=== PATIENT | male | born 1975 | race Caucasian/White ===

== ENCOUNTER 2020-04-20 09:01 | Outpatient (REF) | payer OTHER, SELFPAY | END 2020-04-20 09:02 | disposition home or self-care (01) | LOC: HO.LAB 09:01 | PROVIDERS: Visit Provider Internal Medicine | DX: Z20.822 Contact with and (suspected) exposure to COVID-19 (principal) | CPT/HCPCS: 36415; C9803; U0003; U0005 ==

== ENCOUNTER → 2021-04-25 07:50 | Outpatient (BNVA) | payer SELFPAY | PROVIDERS: PCP Internal Medicine; Visit Provider Internal Medicine | DX: Z02.79 Encounter for issue of other medical certificate (principal) ==

== ENCOUNTER 2021-10-02 09:26 | Outpatient (REF) | payer OTHER, SELFPAY ==
[2021-10-02 10:22] LABS: MANUAL DIFF FLAG NO
[2021-10-02 10:31] LABS: Basophils Percent Auto 0.7 % (0-2); Eosinophils Absolute Auto 0.3 X10*3/uL (0.0-0.4); Eosinophils Percent Auto 6.9 % (0-4); Hematocrit 41.6 % (42.0-52.0); Imm Gran Abs Auto 0.02 X10*3/uL (0.00-0.03); Imm Gran Pct Auto 0.5 % (0.0-0.4); Lymphocytes Absolute Auto 1.2 X10*3/uL (1.2-4.9); Lymphocytes Percent Auto 30.1 % (20-40); Mean Corpuscular HGB Conc 33.7 g/dl (31.0-36.0); Mean Corpuscular Hemoglobin 27.1 pg (27.0-33.0); Mean Corpuscular Volume 80.6 fL (80.0-98.0); Mean Platelet Volume 10.1 fL (9.4-12.4); Monocytes Absolute Auto 0.4 X10*3/uL (0.1-1.2); Monocytes Percent Auto 10.8 % (2-11); Neutrophils Absolute Auto 2.1 x10*3/uL (2.0-8.3); Platelet Count 245 X10*3/uL (160-400); Red Blood Count 5.16 X10*6/uL (4.60-5.80); Red Cell Distribution Width 12.2 % (11.0-16.0); White Blood Count 4.1 X10*3/uL (4.8-10.8)
[2021-10-02 11:15] LABS: Alanine Aminotransferase 23 U/L (0-40); Albumin Level 4.2 g/dL (3.5-5.0); Alkaline Phosphatase 85 U/L (39-117); Anion Gap 10 (12-20); Aspartate Amino Transferase 16 U/L (5-37); Bilirubin Total 0.7 mg/dL (0.0-1.0); Blood Urea Nitrogen 13 mg/dL (9-16); Calcium 9.1 mg/dL (8.4-10.2); Carbon Dioxide 26 mmol/L (22-29); Chloride 106 mmol/L (96-108); Cholesterol 184 mg/dL; Estimated Glomerular Filt Rate > 60; Glucose Fasting 132 mg/dL (60-99); HDL Cholesterol 34 mg/dL; LDL Cholesterol Calculated 122 mg/dl; Potassium 4.2 mmol/L (3.3-5.1); Sodium 138 mmol/L (135-145); Triglycerides 142 mg/dL
== END 2021-10-02 09:27 | disposition home or self-care (01) ==
LOC: HO.10HDL 09:26
PROVIDERS: Visit Provider Internal Medicine
DX: Z13.0 Encounter for screening for diseases of the blood and blood-forming organs and certain disorders involving the immune mechanism (principal); I10 Essential (primary) hypertension; E78.5 Hyperlipidemia, unspecified
CPT/HCPCS: 36415; 80053; 80061; 85025

== ENCOUNTER 2022-12-08 13:37 | Outpatient (AMB) | payer OTHER, SELFPAY ==
[2022-12-08 13:37] VITALS: BP 112/82; PULSE 70; O2SAT 98; BMI 40.0
--- NOTE | 2022-12-08 13:37 | MHC.PC.OV ---
Vital Signs 12/08/22 13:37 Height 5 ft 8 in Weight 263 lb BMI 40.0 BP 112/82 Blood Pressure Location Lt brachial Position Sitting Pulse 70 Pulse Source Pulse Oximeter Pulse Oximetry (%) 98 Oxygen Delivery Method Room Air Intake Visit Reasons: Physical exam Kitchen Help Handyman Required: No Warehouse Order Filler: Not Required per policy Accompanied by: Self / Same As Patient Allergies latex [LATEX] Allergy (Intermediate, Verified 12/08/22 13:38) ITCHING/RASH Pets Allergy (Unknown, Uncoded 12/08/22 13:38) Unknown Medication List - Last Reconciled 12/08/22 by Ke Denson MD albuterol sulfate 90 mcg/actuation (ProAir HFA) 2 puffs PO Q4-6H PRN ibuprofen 800 mg PO Q8H Tobacco use date assessed: 12/08/22 Dental Screening Dental Screen Date: 12/08/22 Did you have a dental visit in the last 12 months?: Yes Did you have a dental problem in the last 6 months where you did not have access to dental care?: No Was dental information given to patient?: Patient has dentist HPI Physical exam HPI Details mild asthma PFSH Medical History Obesity (BMI 30-39.9) Asthma Surgical History History of lipoma Family History Mother No problems noted. Father No problems noted. Social History Housing: House Patient Tobacco Use Status: Former Tobacco user Tobacco use type: Cigar e-Cigarette/Vaping Use: Never Used Second Hand Smoke Exposure: Yes service: No Current occupational status: unemployed Cognitive needs: No Hearing needs: No Vision needs: No Questionnaire PHQ-9 Over the last 2 weeks, how often have you been bothered by any of the following problems? 1. Little interest or pleasure in doing things: not at all 2. Feeling down, depressed, or hopeless: not at all 3. Trouble falling or staying asleep, or sleeping too much: not at all 4. Feeling tired or having little energy: not at all 5. Poor appetite or overeating: not at all 6. Feeling bad about yourself - or that you are a failure or have let yourself or your family down: not at all 7. Trouble concentrating on things, such as reading the newspaper or watching television: not at all 8. Moving or speaking so slowly that other people could have noticed. Or the opposite - being so fidgety or restless that you have been moving around a lot more than usual: not at all 9. Thoughts that you would be better off or of hurting yourself in some way: not at all Total score: 0 Depression Screening Interpretation: Negative 11959 - PHQ-9 Billing: Yes Source: Developed by Drs. Raymond Keller, Anny Saleh, Reuben Milton and colleagues, with an educational kedar from [employer]. Thrive Questionnaire Date Thrive assessed: 12/08/22 I am a: Patient What is your living situation today?: I have a steady place to live Within the past 12 months, did the food you bought not last and you didn't have the money to get more?: Never true Within the past 12 months, did you worry whether your food would run out before you got money to buy more?: Never true Do you have trouble paying for medicines?: No Do you have trouble getting transportation to medical appointments?: No Do you have trouble paying your heating and electricity bill?: No Do you have trouble taking care of your child, family member or friend?: No Do you have trouble with day-to-day activities such as bathing, preparing meals, shopping, managing finances, etc.?: No Are you currently unemployed and looking for a job?: No Are you interested in more education?: No Please select the resources that you would like help with: None AUDIT C Alcohol Use Questionnaire (AUDIT-C) 1. How often do you have a drink containing alcohol?: 2-4 times a month 2. How many drinks containing alcohol do you have on a typical day when you are drinking?: 3 or 4 3. How often do you have six or more drinks on one occasion?: Never Total Score: 3 Score Reviewed/Action Taken: Yes DERRELL-7 AMB Questionnaire DERRELL-7 Date DERRELL - 7 assessed: 12/08/22 Feeling nervous, anxious, or on edge: 0 = Not at all Not being able to stop or control worryin = Not at all Worrying too much about different things: 0 = Not at all Trouble relaxin = Not at all Being so restless that it is hard to sit still: 0 = Not at all Becoming easily annoyed or irritable: 0 = Not at all Feeling afraid as if something awful might happen: 0 = Not at all Total DERRELL-7 score (0-4 normal; 5-9 mild; 10-14 moderate; 15-21 severe): 0 Source: Developed by Drs. Raymond Keller, Anny Saleh, Reuben Milton and colleagues, with an educational kedar from [employer]. DERRELL-7 Assessment Billing DERRELL-7 Assessment Tool: DERRELL-7 Assessment 90295 Review of Systems Const Denies chills, Denies fatigue, Denies headache(s) and Denies weight loss Eyes Denies change in vision, Denies diplopia and Denies eye pain ENT Denies vertigo, Denies dizziness, Denies headache(s) and Denies nasal discharge Card Denies chest pain, Denies rapid heart rate and Denies dyspnea on exertion Resp Denies chest congestion, Denies cough, Denies pain with cough and Denies dyspnea on exertion GI Denies abdominal pain, Denies hematochezia and Denies change in bowel habits Musc Denies myalgias, Denies arthralgias and Denies joint swelling Skin/Breast Denies lesions and Denies unusual bruising Neuro Denies vertigo, Denies dizziness, Denies headache(s) and Denies focal weakness Endo Denies fatigue Physical exam (Primary Care) Vital Signs: Last Vital Signs Pulse 70 12/08/22 13:37 BP 112/82 12/08/22 13:37 Pulse Ox 98 12/08/22 13:37 Oxygen Delivery Method Room Air 12/08/22 13:37 BMI result Body Mass Index 40.0 Tobacco/Smoking Status: Tobacco use Status Tobacco use date assessed 12/08/22 12/08/22 13:42 Patient Tobacco Use Status Former Tobacco user 12/08/22 13:42 Tobacco use type Cigar 12/08/22 13:42 e-Cigarette/Vaping Use Never Used 12/08/22 13:42 PHQ-9: PHQ-9 Score PHQ-9: Total score 0 12/08/22 13:42 Depression Screening Interpretation: Negative Thrive Assessment: Date of Thrive Assessment Date Thrive assessed 12/08/22 12/08/22 13:42 Const General: cooperative, healthy appearing and no acute distress Orientation/consciousness: oriented to person, oriented to place and oriented to time HENMT Head: Yes normal to inspection, Yes normocephalic and Yes atraumatic Mouth: Normal oral and palatal mucosa present and tongue normal Throat: Yes posterior oropharynx normal and Yes uvula midline Eyes General: appearance normal, both eyes and all related structures Neck Neck: Yes normal visual inspection, Yes full ROM and Yes no lymphadenopathy Thyroid: Thyroid normal Carotids: normal carotid upstroke Chest Chest palpation & inspection: normal inspection of the chest Resp Effort & Inspection: normal respiratory effort and able to speak in complete sentences Auscultation: clear to auscultation bilaterally Cardio Jugular venous distension: no JVD Palpation: normal PMI Rate: regular rate Rhythm: regular rhythm Heart sounds: S1 normal heart sound present and S2 normal heart sound present GI Inspection: Yes normal to inspection Palpation (GI): Soft to palpation and No hepatosplenomegaly present Auscultation: normal bowel sounds General: Yes no CVA tenderness Back/Spine/Pelvis Back: no CVA tenderness Skin General skin exam: no rashes or lesions noted Neuro General: oriented to person, oriented to place and oriented to time Extrem General: Yes normal to inspection and Yes full ROM Assessment and Plan Assessment & Plan (1) Physical exam: Code(s): Z00.00 - Encounter for general adult medical examination without abnormal findings Plan: stable (2) Asthma: Code(s): J45.909 - Unspecified asthma, uncomplicated Plan: do labs Orders: Orders Lipid Panel Today E78.5 - Hyperlipidemia, unspecified Comprehensive [place]. Panel Fast Today N28.9 - Disorder of kidney and ureter, unspecified Complete Blood Count Auto Diff Today D64.9 - Anemia, unspecified Thyroid Stimulating Hormone Today E03.9 - Hypothyroidism, unspecified Magnesium Today E83.42 - Hypomagnesemia Referrals Gastroenterology Referral Z12.11 - Encounter for screening for malignant neoplasm of colon Medications: Refilled albuterol sulfate 90 mcg/actuation (ProAir HFA) 2 puffs PO Q4-6H PRN 8.5 ea 9RF shortness of breath or wheezing Coding Level of Care Code Est Pt Prev Care 40-64y(29604) Diagnoses Physical exam Z00.00 Asthma J45.909 Additional Codes DERRELL-7 Assessment Billing - DERRELL-7 Assessment Tool: DERRELL-7 Assessment 37252 ([id number])
== END 2022-12-08 14:17 | disposition home or self-care (01) ==
PROVIDERS: PCP Internal Medicine; Visit Provider Internal Medicine
DX: Z00.00 Encounter for general adult medical examination without abnormal findings (principal); J45.909 Unspecified asthma, uncomplicated
CPT/HCPCS: 99396

== ENCOUNTER 2022-12-08 14:15 | Outpatient (REF) | payer OTHER, SELFPAY ==
[2022-12-08 14:42] LABS: MANUAL DIFF FLAG NO
[2022-12-08 15:38] LABS: Basophils Absolute Auto 0.1 X10*3/uL (0.0-0.2); Eosinophils Absolute Auto 0.3 X10*3/uL (0.0-0.4); Eosinophils Percent Auto 6.4 % (0-4); Hematocrit 42.8 % (42.0-52.0); Hemoglobin 14.1 g/dl (14.0-18.0); Imm Gran Abs Auto 0.03 X10*3/uL (0.00-0.03); Imm Gran Pct Auto 0.6 % (0.0-0.4); Lymphocytes Absolute Auto 1.8 X10*3/uL (1.2-4.9); Lymphocytes Percent Auto 36.2 % (20-40); Mean Corpuscular HGB Conc 32.9 g/dl (31.0-36.0); Mean Corpuscular Hemoglobin 27.6 pg (27.0-33.0); Mean Corpuscular Volume 83.9 fL (80.0-98.0); Mean Platelet Volume 10.4 fL (9.4-12.4); Monocytes Absolute Auto 0.6 X10*3/uL (0.1-1.2); Monocytes Percent Auto 12.2 % (2-11); Neutrophils Absolute Auto 2.2 x10*3/uL (2.0-8.3); Neutrophils Percent Auto 43.6 % (45-73); Platelet Count 234 X10*3/uL (160-400); Red Cell Distribution Width 12.4 % (11.0-16.0)
[2022-12-08 16:11] LABS: Alanine Aminotransferase 21 U/L (0-40); Albumin Level 4.3 g/dL (3.5-5.0); Alkaline Phosphatase 74 U/L (39-117); Anion Gap 12 (12-20); Aspartate Amino Transferase 17 U/L (5-37); Bilirubin Total 1.5 mg/dL (0.0-1.0); Blood Urea Nitrogen 13 mg/dL (9-16); Calcium 9.4 mg/dL (8.4-10.2); Carbon Dioxide 26 mmol/L (22-29); Chloride 106 mmol/L (96-108); Cholesterol 208 mg/dL (<200); Estimated Glomerular Filt Rate > 60; Glucose Fasting 105 mg/dL (60-99); HDL Cholesterol 45 mg/dL (>40); LDL Cholesterol Calculated 138 mg/dL (<100); Magnesium 1.9 mg/dL (1.6-2.6); Sodium 140 mmol/L (135-145); Total Protein 7.2 g/dL (6.5-8.0); Triglycerides 127 mg/dL (<150)
[2022-12-08 16:26] LABS: Thyroid Stimulating Hormone 0.89 uIU/mL (0.32-4.0)
== END 2022-12-08 14:16 | disposition home or self-care (01) ==
LOC: HO.LAB 14:15
PROVIDERS: PCP Internal Medicine; Visit Provider Internal Medicine
DX: N28.9 Disorder of kidney and ureter, unspecified (principal); E03.9 Hypothyroidism, unspecified; E83.42 Hypomagnesemia; E78.5 Hyperlipidemia, unspecified; D64.9 Anemia, unspecified
CPT/HCPCS: 36415; 80053; 80061; 83735; 84443; 85025

== ENCOUNTER → 2023-04-08 08:55 | Outpatient (BNVA) | payer SELFPAY | PROVIDERS: PCP Internal Medicine; Visit Provider Physician Assistant Medical | DX: Z02.79 Encounter for issue of other medical certificate (principal) ==

== ENCOUNTER 2023-10-02 10:27 | Day surgery (SDC) | payer OTHER, SELFPAY ==
[2023-09-30 14:46] VITALS: BMI 41.0
[2023-09-30 14:55] VITALS: BMI 41.0
--- NOTE | 2023-10-01 09:25 | HO.ANESPROP2 ---
Documented by User: Fawn Beyer NP 10/01/23 09:25 HPI - Anesthesia Eval Consult details Narrative: 48yo M for Colonoscopy Per GI H&P, hx PAF 2002 resolved, No OAC PMFSH Active Problems Active Problems: All Active Problems Physical exam (Acute) Obesity (BMI 30-39.9) (Acute) Asthma (Acute) Past Medical History Medical History PAF (paroxysmal atrial fibrillation) Obesity (BMI 30-39.9) Asthma Family History Family History Mother No problems noted. Father No problems noted. Surgical History Surgical History History of lipoma Social History Social History Housing: House Patient Tobacco Use Status: Former Tobacco user Tobacco use type: Cigar e-Cigarette/Vaping Use: Never Used Second Hand Smoke Exposure: Yes Use of substances other than those prescribed or required for medical reasons: No Have you been hit, kicked, punched, or otherwise hurt by someone within the past year? If so, by whom?: No Are you DNR?: No Advance Directives: No Advance Directives Information Provided: No Advance Directives on File: No Recently lost weight without trying: No Eating poorly because of decreased appetite: No Nutrition Risks: No Nutritional Risk service: No Current occupational status: unemployed Cognitive needs: No Hearing needs: No Vision needs: No Meds Allergies Allergy/AdvReac Type Severity Reaction Status Date / Time animal dander Allergy Intermediate Itchy Eyes Verified 10/02/23 06:31 latex [LATEX] Allergy Intermediate ITCHING/RASH-from Verified 10/02/23 06:31 powder in latex gloves Home Medications ?Medication ?Instructions ?Recorded ?Confirmed ?Last Taken ?Type albuterol sulfate 90 mcg/actuation 2 puff inhalation Q4-6H PRN 09/30/23 09/30/23 Unknown History aerosol inhaler (Ventolin HFA) wheezing Exam Height,Weight and Vital Signs: Height 5 ft 8 in Weight 122.47 kg Assessment and Plan Assessment Anesthesia Assessment: Chart Reviewed Documented by User: Agatha Johnson MD 10/02/23 08:13 PMFSH Past Medical History Medical History PAF (paroxysmal atrial fibrillation) Obesity (BMI 30-39.9) Asthma Family History Family History Mother No problems noted. Father No problems noted. Family history of problems with anesthesia: No Surgical History Surgical History History of lipoma History of Problems with Anesthesia: No Social History Social History Housing: House Patient Tobacco Use Status: Former Tobacco user Tobacco use type: Cigar e-Cigarette/Vaping Use: Never Used Second Hand Smoke Exposure: Yes Use of substances other than those prescribed or required for medical reasons: No Have you been hit, kicked, punched, or otherwise hurt by someone within the past year? If so, by whom?: No Are you DNR?: No Advance Directives: No Advance Directives Information Provided: No Advance Directives on File: No Recently lost weight without trying: No Eating poorly because of decreased appetite: No Nutrition Risks: No Nutritional Risk service: No Current occupational status: unemployed Cognitive needs: No Hearing needs: No Vision needs: No Meds Allergies Allergy/AdvReac Type Severity Reaction Status Date / Time animal dander Allergy Intermediate Itchy Eyes Verified 10/02/23 06:31 latex [LATEX] Allergy Intermediate ITCHING/RASH-from Verified 10/02/23 06:31 powder in latex gloves Home Medications ?Medication ?Instructions ?Recorded ?Confirmed ?Last Taken ?Type albuterol sulfate 90 mcg/actuation 2 puff inhalation Q4-6H PRN 09/30/23 09/30/23 Unknown History aerosol inhaler (Ventolin HFA) wheezing Exam Airway Mallampati Class: II TM Dist: >3cm Neck ROM: Full Heart: rrr Lungs: cta Assessment and Plan Assessment Anesthesia Assessment: Anesthesia Plan Discussed Final Anesthetic Review Family History of Problems with Anesthesia: No History of Problems with Anesthesia: No NPO: Yes ASA Class: II Final Preanesthetic Review: No Changes in Pt Med Stat, Meds/Allgs Chart Reviewed, Consent Obtained/Reviewed and Anes Risks/Benef Reviewed Patient Risk: Low Procedure Risk: Low Anesthetic Plan Anesthetic Plan: MAC: Disposition: Standard PACU
[2023-10-02] MEDS: Lactated Ringers 1,000 ML 100 ML IVCONT (11:01)
[2023-10-02 11:09] VITALS: BP 132/85; PULSE 74; RESP 18; TEMP 36.8; O2SAT 96
--- NOTE | 2023-10-02 13:03 | PM.OP ---
Brief Operative Note Date of Service: 10/02/23 Pre-op diagnosis: Screening Post-op diagnosis: other (Diverticulosis) Procedure: Colonoscopy to the cecum Surgeon: Raymond Mrianda MD Anesthesia: MAC Was an Whipped Topping Supervisor used for this Procedure?: No Estimated blood loss (mL): 0 Pathology: none sent Condition: stable Disposition: PACU
[2023-10-02 13:04] VITALS: BP 105/65; PULSE 78; RESP 16; TEMP 36.2; O2SAT 94
[2023-10-02 13:19] VITALS: BP 110/75; PULSE 65; RESP 16; TEMP 36.2; O2SAT 95
--- NOTE | 2023-10-02 13:34 | OP_ITS ---
DATE OF SERVICE: 10/02/2023 SURGEON: Raymond Miranda MD INDICATIONS: The patient presents for evaluation of colorectal cancer screening. Full consent has been obtained from him for this, including risks of bleeding and perforation. PREOPERATIVE DIAGNOSIS: Colorectal cancer screening. POSTOPERATIVE DIAGNOSIS: PROCEDURE PERFORMED: Colonoscopy to cecum. ESTIMATED BLOOD LOSS: COMPLICATIONS: ANESTHESIA: Monitored anesthesia care. ASSISTANTS: SPECIMENS: POSTOPERATIVE DIAGNOSES: Colorectal cancer screening, sigmoid diverticulosis, and internal hemorrhoids. DESCRIPTION OF PROCEDURE: The patient was placed in the left lateral decubitus position. The digital rectal exam revealed no abnormalities. The Olympus video pediatric colonoscope was entered into the rectum and advanced easily to the cecum. Once in the cecum, I did identify normal-appearing cecal pouch with appendiceal orifice and a normal-appearing ileocecal valve. The entire cecum appeared normal without mass or ulceration. The ileocecal valve appeared normal. The scope was slowly withdrawn assessing all mucosal surfaces carefully. Preparation was excellent. I did not visualize any sign of polyps, colitis, nor angiodysplasia. There was a mild amount of sigmoid diverticulosis. In the rectum, scope was retroflexed visualizing small internal hemorrhoids, but no other pathology. The rectal mucosa appeared normal. The scope was straightened and withdrawn from the patient. He tolerated the procedure well and was returned to the recovery area in stable condition. IMPRESSION: 1. Mild sigmoid diverticulosis. 2. Small internal hemorrhoids. PLAN: Given today's negative colonoscopy and negative family history of colon cancer, I would recommend a repeat colonoscopy in 10 years for further screening. He will otherwise see me on a p.r.n. basis. Raymond Miranda MD RMYandy/FUENTES / [phone]
--- NOTE | 2023-10-02 13:52 | PC.NURSE ---
24hr update documented on paper
== END 2023-10-02 13:40 | disposition home or self-care (01) ==
PROVIDERS: PCP Internal Medicine; Visit Provider Internal Medicine
PROC: 0DJD8ZZ Inspection of Lower Intestinal Tract, Via Natural or Artificial Opening Endoscopic (ICD-10-PCS; CPT 45378; principal; 2023-10-02 07:30)
DX: Z12.11 Encounter for screening for malignant neoplasm of colon (principal); K57.30 Diverticulosis of large intestine without perforation or abscess without bleeding; K64.8 Other hemorrhoids; Z79.1 Long term (current) use of non-steroidal anti-inflammatories (NSAID)
CPT/HCPCS: 45378; J2704

== ENCOUNTER 2024-08-25 08:35 | Outpatient (AMB) | payer OTHER, SELFPAY ==
[2024-08-25 08:37] VITALS: BP 116/82; PULSE 74; RESP 16; TEMP 37.3; O2SAT 98; BMI 39.8
--- NOTE | 2024-08-25 08:37 | A.OFFPC_ITS ---
Vital Signs 08/25/24 08:37 Height 5 ft 8 in Weight 261 lb 12.8 oz BMI 39.8 BP 116/82 Blood Pressure Location Lt brachial Position Sitting Respiration 16 Pulse 74 Pulse Source Pulse Oximeter Temp 99.1 F Temp Source Oral Pulse Oximetry (%) 98 Oxygen Delivery Method Room Air Intake Visit Reasons: DONG DR Denson Editor Index Required: No Accompanied by: Self / Same As Patient Allergies animal dander Allergy (Intermediate, Verified 08/25/24 08:49) Itchy Eyes latex (LATEX) Allergy (Intermediate, Verified 08/25/24 08:49) ITCHING/RASH-from powder in latex gloves Medication List - Last Reconciled 08/25/24 by MARCELLE Pressley albuterol sulfate 90 mcg/actuation (Ventolin HFA) 2 puffs inhalation Q4-6H PRN ibuprofen 800 mg PO Q8H Tobacco use date assessed: 08/25/24 Dental Screening Dental Screen Date: 08/25/24 Did you have a dental visit in the last 12 months?: Yes Did you have a dental problem in the last 6 months where you did not have access to dental care?: No Was dental information given to patient?: Patient has dentist HPI DONG DR Denson HPI Details The patient is a 49-year-old male presenting for transition of care from Dr. Denson and for a routine check-up and management of chronic conditions. The patient has a history of hyperlipidemia (LDL) with previous cholesterol levels fluctuating between 122 and 165 mg/dL, currently at 138 mg/dL. He has modified his diet by increasing vegetable intake and reducing alcohol consumption. The patient reports asthma exacerbations primarily during pollen season, requiring the use of Ventolin and ProAir inhalers up to 3-4 times daily during July. He avoids using a nebulizer due to a history of atrial fibrillation, which was last symptomatic approximately 20 years ago. 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 He has not had an x-ray of the shoulder previously. The patient also reports osteoarthritis in both knees, with intermittent swelling and pain managed with ibuprofen. He engages in long walks to alleviate symptoms, although advised against it. The patient underwent surgery for a lipoma, which no longer causes pain. His lower back has wearing tear pain that hurts once in a while. The pain is mild in nature does not require medication at this time. Reports having AFIB in his 20s and was placed on medication but he cannot remember the name. He stopped the medication and has not follow up with cardiology in years. States that he changed his diet and stop drinking alcohol, and he has not had an episode since. Patient stated that he is not getting any younger and thinks that he should follow up with cardiology to make sure his heart is fine. [facility] Medical History (Updated 08/25/24 @ 21:31 by MARCELLE Pressley) Bilateral knee pain PAF (paroxysmal atrial fibrillation) Obesity (BMI 30-39.9) Asthma Surgical History History of lipoma Family History Mother No problems noted. Father No problems noted. Social History Housing: House Patient Tobacco Use Status: Former Tobacco user Tobacco use type: Cigar e-Cigarette/Vaping Use: Never Used Second Hand Smoke Exposure: No service: No Current occupational status: unemployed Cognitive needs: No Hearing needs: No Vision needs: No Questionnaire PHQ-9 Over the last 2 weeks, how often have you been bothered by any of the following problems? 1. Little interest or pleasure in doing things: several days 2. Feeling down, depressed, or hopeless: not at all 3. Trouble falling or staying asleep, or sleeping too much: not at all 4. Feeling tired or having little energy: several days 5. Poor appetite or overeating: not at all 6. Feeling bad about yourself - or that you are a failure or have let yourself or your family down: not at all 7. Trouble concentrating on things, such as reading the newspaper or watching television: not at all 8. Moving or speaking so slowly that other people could have noticed. Or the opposite - being so fidgety or restless that you have been moving around a lot more than usual: not at all 9. Thoughts that you would be better off or of hurting yourself in some way: not at all Total score: 2 Depression Screening Interpretation: Negative Depression Screening Done: Yes 55826 - PHQ-9 Billing: Yes Source: Developed by Drs. Raymond Keller, Anny Saleh, Reuben Milton and colleagues, with an educational kedar from [employer]. Thrive Questionnaire Date Thrive assessed: 08/25/24 I am a: Patient What is your living situation today?: I have a steady place to live Within the past 12 months, did the food you bought not last and you didn't have the money to get more?: Never true Within the past 12 months, did you worry whether your food would run out before you got money to buy more?: Never true Do you have trouble paying for medicines?: No Do you have trouble getting transportation to medical appointments?: No Do you have trouble paying your heating and electricity bill?: No Do you have trouble taking care of your child, family member or friend?: No Do you have trouble with day-to-day activities such as bathing, preparing meals, shopping, managing finances, etc.?: No Are you currently unemployed and looking for a job?: No Are you interested in more education?: No Please select the resources that you would like help with: None Currently or been in a relationship where the following occur: No concerns reported THRIVE Score: 0 AUDIT C Alcohol Use Questionnaire (AUDIT-C) 1. How often do you have a drink containing alcohol?: Never Total Score: 0 Score Reviewed/Action Taken: No DERRELL-7 AMB Questionnaire DERRELL-7 Date DERRELL - 7 assessed: 08/25/24 Feeling nervous, anxious, or on edge: 0 = Not at all Not being able to stop or control worryin = Not at all Worrying too much about different things: 0 = Not at all Trouble relaxin = Not at all Being so restless that it is hard to sit still: 3 = Nearly every day Becoming easily annoyed or irritable: 0 = Not at all Feeling afraid as if something awful might happen: 0 = Not at all Total DERRELL-7 score (0-4 normal; 5-9 mild; 10-14 moderate; 15-21 severe): 3 Source: Developed by Drs. Raymond Keller, Reuben Salcido and colleagues, with an educational kedar from [employer]. DERRELL-7 Assessment Billing DERRELL-7 Assessment Tool: DERRELL-7 Assessment 69469 Review of Systems Const Denies headache(s) Eyes Denies loss of vision ENT Denies vertigo, Denies dizziness, Denies headache(s) and Denies sore throat Card Denies chest pain, Denies leg edema and Denies lightheadedness Resp Denies cough, Denies hemoptysis and Reports wheezing (on and off-more frequent due the seasonal changes) GI Denies abdominal pain, Denies melena, Denies constipation, Denies diarrhea and Denies vomiting Denies dysuria, Denies urinary frequency and Denies urinary urgency Musc Reports back pain (on and off mild ), Reports arthralgias (left shoulder, bilateral knee), Reports joint swelling (hx of asim knee swelling on and off-has not happen in a long time), Denies numbness and Denies tingling Neuro Denies Abnormal speech present, Denies behavioral changes, Denies vertigo, Denies dizziness, Denies headache(s), Denies loss of vision, Denies memory loss, Denies numbness and Denies tingling Psych Denies anxiety, Denies behavioral changes, Denies depression, Denies memory loss and Denies panic attacks Emmanuel/Lymph Denies easy bleeding and Denies easy bruising Aller/Immun Reports wheezing (on and off-more frequent due the seasonal changes) Physical exam (Primary Care) Vital Signs: Last Vital Signs Temp 99.1 F 08/25/24 08:37 Pulse 74 08/25/24 08:37 Resp 16 08/25/24 08:37 BP 116/82 08/25/24 08:37 Pulse Ox 98 08/25/24 08:37 Oxygen Delivery Method Room Air 08/25/24 08:37 BMI result Body Mass Index 39.8 Tobacco/Smoking Status: Tobacco use Status Tobacco use date assessed 08/25/24 08/25/24 08:47 Patient Tobacco Use Status Former Tobacco user 08/25/24 08:47 Tobacco use type Cigar 08/25/24 08:47 e-Cigarette/Vaping Use Never Used 08/25/24 08:47 PHQ-9: PHQ-9 Score PHQ-9: Total score 2 08/25/24 09:12 Depression Screening Interpretation: Negative Thrive Assessment: Date of Thrive Assessment Date Thrive assessed 08/25/24 08/25/24 08:47 Currently or been in a relationship where the following occur: No concerns reported Const General: healthy appearing, no acute distress, alert and awake Nutritional Appearance: well nourished Orientation/consciousness: oriented to person, oriented to place and oriented to time HENMT Ears: TM's normal bilaterally General nose exam: Normal nasal mucous membranes and turbinates present Eyes Conjunctivae: conjunctivae normal Sclerae: sclerae normal Pupils: Equal, round and reactive pupils present Neck Neck: Yes no lymphadenopathy and Yes no JVD Thyroid: Thyroid normal Carotids: no bruits Resp Effort & Inspection: normal respiratory effort and not tachypneic Auscultation: no crackles, no rales, no rhonchi and no wheezes Cardio Rate: regular rate Rhythm: regular rhythm Heart sounds: no murmurs and normal S1 and S2 GI Palpation (GI): Soft to palpation, nontender, no hepatomegaly and no splenomegaly Auscultation: normal bowel sounds General: Yes no CVA tenderness Back/Spine/Pelvis Back: no CVA tenderness Thoracic/Lumbar Spine: No thoracic spinal tenderness and No lumbar spinal tenderness Skin General skin exam: no rashes or lesions noted and dry skin Neuro General: oriented to person, oriented to place and oriented to time Cranial nerves: Yes Equal, round and reactive pupils present Speech: No Abnormal speech present Gait exam (Neuro): Normal gait present Motor exam (neuro): no tremor noted Extrem Right upper extremity: full ROM Left upper extremity: full ROM and shoulder/upper arm Details: tenderness and other (cracking sounds with movements) Right lower extremity: full ROM and knee Details: no tenderness and no swelling; no edema Left lower extremity: full ROM and knee Details: no tenderness and no swelling; no edema Psych Mental Status: mental status grossly normal Speech and movement: Normal speech and movement present Affect: normal affect Attitude: cooperative Thought process: Normal thought process present Coding Level of Care Code Est Pt Level 4 (71160) Diagnoses PAF (paroxysmal atrial fibrillation) I48.0 Hyperlipidemia, unspecified hyperlipidemia type E78.5 Hyperlipidemia type: unspecified Obesity (BMI 30-39.9) E66.9 Chronic left shoulder pain M25.512; G89.29 Chronicity: chronic Mild intermittent asthma with status asthmaticus J45.22 Asthma severity: mild Asthma persistence: intermittent Asthma complication type: with status asthmaticus Chronic pain of both knees M25.561; M25.562; G89.29 Chronicity: chronic Additional Codes DERRELL-7 Assessment Billing - DERRELL-7 Assessment Tool: DERRELL-7 Assessment 33709 ([id number]) PHQ-9 - 84525 - PHQ-9 Billing: Yes ([id number]) Time Spent (min) 38 Assessment & Plan Assessment & Plan (1) PAF (paroxysmal atrial fibrillation): Comment: 2001-never took [id number] recurred-? alcohol induced-no longer using alcohol-sees PCP regularly-is active Code(s): I48.0 - Paroxysmal atrial fibrillation Category: Medical Plan: Afib in his 20s was placed on medication by cardiology but stopped the medication shortly after has not followed up with cardiology in about 20 years denies any episodes since-attributed to changing diet and stop drinking alcohol would like to follow up with cardiology to make sure his heart is fine because I am not getting any younger will send pt for EKG and blood work cardiology referral placed (2) HLD (hyperlipidemia): Code(s): E78.5 - Hyperlipidemia, unspecified Category: Medical Qualifiers: Hyperlipidemia type: unspecified Qualified Code(s): E78.5 - Hyperlipidemia, unspecified Plan: t-chol 208, ldl 138, hdl 45 12/2022 Discussed lifestyle modifications including dietary changes and physical activity will order lipid and advise (3) Obesity (BMI 30-39.9): Code(s): E66.9 - Obesity, unspecified Category: Medical Plan: Discussed lifestyle modifications including dietary changes and physical activity (4) Left shoulder pain: Code(s): M25.512 - Pain in left shoulder Category: Medical Qualifiers: Chronicity: chronic Qualified Code(s): M25.512 - Pain in left shoulder; G89.29 - Other chronic pain Plan: ongoing pain, limited ROM and reported cracking sounds with movements left shoulder x-ray ordered to further evaluate (5) Asthma: Code(s): J45.909 - Unspecified asthma, uncomplicated Category: Medical Qualifiers: Asthma severity: mild Asthma persistence: intermittent Asthma complication type: with status asthmaticus Qualified Code(s): J45.22 - Mild intermittent asthma with status asthmaticus Plan: only seasonal, but appears to be more than mild during the flare ups offered mild corticosteriod inhaler, but he declined will continue to monitor (6) Bilateral knee pain: Code(s): M25.561 - Pain in right knee; M25.562 - Pain in left knee Category: Medical Qualifiers: Chronicity: chronic Qualified Code(s): M25.561 - Pain in right knee; M25.562 - Pain in left knee; G89.29 - Other chronic pain Plan: Reports ongoing on and off bilateral knee swelling/pain No edema or tenderness to palpation +ROM, normal appearing knees continue conservative treatments with NSAIDS Orders: Orders Comprehensive [place]. Panel Fast Today E66.9 - Obesity, unspecified, E78.5 - Hyperlipidemia, unspecified, J45.909 - Unspecified asthma, uncomplicated, Z00.00 - Encounter for general adult medical examination without abnormal findings Vitamin D 25-OH Total Today E66.9 - Obesity, unspecified, E78.5 - Hy perlipidemia, unspecified, J45.909 - Unspecified asthma, uncomplicated, Z00.00 - Encounter for general adult medical examination without abnormal findings Lipid Panel Today E66.9 - Obesity, unspecified, E78.5 - Hyperlipidemia, unspecified, J45.909 - Unspecified asthma, uncomplicated, Z00.00 - Encounter for general adult medical examination without abnormal findings Complete Blood Count Auto Diff Today E66.9 - Obesity, unspecified, E78.5 - Hyperlipidemia, unspecified, J45.909 - Unspecified asthma, uncomplicated, Z00.00 - Encounter for general adult medical examination without abnormal findings TSH reflex Free T4 Today E66.9 - Obesity, unspecified, E78.5 - Hyperlipidemia, unspecified, J45.909 - Unspecified asthma, uncomplicated, Z00.00 - Encounter for general adult medical examination without abnormal findings UA CC w/rflx Micro + Cult Today E66.9 - Obesity, unspecified, E78.5 - Hy perlipidemia, unspecified, J45.909 - Unspecified asthma, uncomplicated, Z00.00 - Encounter for general adult medical examination without abnormal findings ECG 12 lead EKG Today I48.0 - Paroxysmal atrial fibrillation Referrals Cardiology Referral I48.0 - Paroxysmal atrial fibrillation
--- OUTSIDE RECORDS SUMMARY | 2024-08-25 08:56 | XMS_ITS | Clinical Summary ---
Author Organization [employer] Address [address] [place] [address] [address] [place] [address] Care Team Providers [employer] Name Role Phone Unavailable Primary Care Provider Unavailabl e Allergies Active Allergy Reactions Criticality Noted Date Comments Latex Itching 01/26/2017 Pt claims he is allergic to the powder inside the latex gloves and not the actual latex itself Octacosanol 07/29/2023 Medications ibuprofen 800 MG tablet Take 800 mg by mouth every 8 (eight) hours. 3 Active Ventolin HFA 108 (90 Base) MCG/ACT inhaler TAKE 2 PUFFS BY MOUTH EVERY 4 TO 6 HOURS NEEDED FOR WHEEZE FOR SHORTNESS OF BREATH 3 Active Active Problems No known active problems Social History Tobacco Use Types Packs/Day Years Used Date Smoking Tobacco: Never Passive Smoke Exposure: Never Smokeless Tobacco: Never Tobacco Cessation:Counseling Given: Not Answered Alcohol Use Standard Drinks/Week Comments Defer 0 (1 standard drink = 0.6 oz pur e alcohol) Comments Unknown Sex and Gender Information Value Date Recorded Sex Assigned at Male 01/06/2022 10:16 AM EDT Legal Sex Male 10:16 AM EDT Gender Identity Male 01/06/2022 10:16 AM EDT Sexual Orientation Straight 01/06/2022 10 :16 AM EDT Last Filed Vital Signs Vital Sign Reading Time Taken Comments Blood Pressure 128/82 05/12/2024 8:06 AM EST Pulse 65 09/14/2023 8:52 AM EDT Temperature - - Respiratory Rate - - Oxygen Saturation - - Inhaled Oxygen Concentration - - Weight - - Height - - Body Mass Index - - Plan of Treatment Upcoming Encounters Date Type Department Care Team ([facility] st Contact Info) Description 11/14/2024 8:00 AM EDT Office Visit [facility] [address] [place] [address] Celine Bernard Health Maintenance Due Date Last Done Comments CT Colonography 1973 Colonoscopy 1973 Colorectal Cancer Screening 1973 Depression Screening 1973 FIT DNA/Cologuard 1973 FIT 1973 FOBT 1973 HIV Screening 1973 Lipid Panel 1973 SDOH Screening 1973 Sigmoidoscopy 1973 Disability Screening 1973 Alcohol/Substance Use Screening 1985 Family Planning (PISQ) 02/23/1988 Hepatitis C Screening 1991 DTaP/Tdap/Td Vaccines (1 - Tdap) 02/23/1992 Hepatitis B Vaccines (1 of 3 - 19+ 3-dose series) 02/23/1992 Pap Smear 1994 Cervical Cancer Screening 2003 HPV/Cotest 2003 Mammogram 2013 Pneumococcal Vaccine: 50+ Years (1 of 1 - PCV) 2023 Zoster Vaccines (1 of 2) 2023 COVID-19 Vaccine (1 - season) 2023 Influenza Vaccine (Season Ended) 2024 Dental Oral Exam 11/13/2024 05/12/2024, , 12/22/2022, Additional history exists Dental Prophylaxis 11/13/2024 05/12/2024, 0 07/29/2023, 12/22/2022, Additional history exists Tobacco Screening 05/12/2025 05/12/2024 Dental X-Ray: Bitewings 05/13/2025 05/13/19 25, 07/29/2023, 12/22/2022, Additional history exists Dental X-Ray: Full Mouth 09/22/2026 09/22/2023, 11/0 06/2020 RSV Patients and Patients Aged 60 years or older (1 - 1-dose 75+ series) 02/23/2048 HIB Vaccines Aged Out No longer eligi ble based on patient's age to complete this topic HPV Vaccines Aged Out No longer eligi ble based on patient's age to complete this topic Hepatitis A Vaccines Aged Out No long er eligible based on patient's age to complete this topic IPV Vaccines Aged Out No longer eligi ble based on patient's age to complete this topic Meningococcal B Vaccine Aged Out No l onger eligible based on patient's age to complete this topic Meningococcal Vaccine Aged Out No jonah julio eligible based on patient's age to complete this topic RSV under 20 months Aged Out No longe r eligible based on patient's age to complete this topic Rotavirus Vaccines Aged Out No longer eligible based on patient's age to complete this topic Procedures Procedure Name Priority Date/Time Associated Diagnosis Comments PROPHYLAXIS - ADULT Routine 05/12/2024 8 :00 AM EST BITEWINGS - 4 RADIOGRAPHIC IMAGES Routine 05/12/2024 8:00 AM EST PERIODIC ORAL EVALUATION - ESTABLISHED PATIENT Routine 05/12/2024 8:00 AM EST PANORAMIC RADIOGRAPHIC IMAGE Routine 09/22/2023 10:00 AM EDT from Last 3 Months or Most Recently Relevant to Health Maintenance Insurance [facility] MEDICAID STAND ADULT
== END 2024-08-25 09:19 | disposition home or self-care (01) ==
DX: I48.0 Paroxysmal atrial fibrillation (principal); E78.5 Hyperlipidemia, unspecified; E66.9 Obesity, unspecified; Z68.39 Body mass index [BMI] 39.0-39.9, adult; M25.512 Pain in left shoulder; G89.29 Other chronic pain; J45.22 Mild intermittent asthma with status asthmaticus; M25.561 Pain in right knee; M25.562 Pain in left knee

== ENCOUNTER 2024-08-25 08:35 | Outpatient (REF) | payer OTHER, SELFPAY ==
--- NOTE | ~2024-08-25 | XR_ITS ---
CLINICAL HISTORY: M25.512 - Pain in left shoulder 4 view left shoulder Comparison: None provided Findings: No fractures or dislocations. There are moderate osteoarthritic changes at the glenohumeral joint with joint space narrowing and osteophyte formation. No erosions. No radiopaque foreign body. IMPRESSION: There are moderate osteoarthritic changes at the glenohumeral joint with significant joint space narrowing and osteophyte formation. This document has been electronically signed by: Joaquín Raymundo MD on 08/26/2024 10:50:40
[2024-08-25 09:47] LABS: MANUAL DIFF FLAG NO
--- NOTE | 2024-08-25 09:53 | ECG_ITS ---
Test Reason : PAF Blood Pressure : */* mmHG Vent. Rate : 71 BPM Atrial Rate : 71 BPM P-R Int : 130 ms QRS Dur : 92 ms QT Int : 382 ms P-R-T Axes : 47 17 -3 degrees QTcB Int : 415 ms Normal sinus rhythm Incomplete right bundle branch block Borderline ECG When compared with ECG of 17-Jun-2012 11:44, No significant changes seen Referred By: Aren Benson Electronically Signed By: Evens Doty
[2024-08-25 10:40] LABS: Eosinophils Absolute Auto 0.3 X10*3/uL (0.0-0.4); Hematocrit 43.5 % (42.0-52.0); Hemoglobin 14.3 g/dl (14.0-18.0); Imm Gran Abs Auto 0.01 X10*3/uL (0.00-0.03); Imm Gran Pct Auto 0.3 % (0.0-0.4); Lymphocytes Absolute Auto 1.4 X10*3/uL (1.2-4.9); Lymphocytes Percent Auto 35.3 % (20-40); Mean Corpuscular HGB Conc 32.9 g/dl (31.0-36.0); Mean Corpuscular Hemoglobin 27.2 pg (27.0-33.0); Mean Corpuscular Volume 82.7 fL (80.0-98.0); Mean Platelet Volume 10.1 fL (9.4-12.4); Monocytes Absolute Auto 0.4 X10*3/uL (0.1-1.2); Neutrophils Absolute Auto 1.8 x10*3/uL (2.0-8.3); Neutrophils Percent Auto 44.4 % (45-73); Platelet Count 241 X10*3/uL (160-400); Red Blood Count 5.26 X10*6/uL (4.60-5.80); Red Cell Distribution Width 12.2 % (11.0-16.0)
[2024-08-25 10:44] LABS: Appearance Urine Clear; Color Urine Yellow; Glucose Urine UA Negative (Negative); Leukocyte Esterase Urine Negative (Negative); Nitrite Urine Negative (Negative); Specific Gravity - Urine 1.025 (1.005-1.025); Urine Blood Negative (Negative); Urine Ketones Negative (Negative); Urine Protein Negative (Neg-Trace)
[2024-08-25 11:37] LABS: Alanine Aminotransferase 28 U/L (0-40); Albumin Level 4.5 g/dL (3.5-5.0); Alkaline Phosphatase 82 U/L (39-117); Anion Gap 10 (12-20); Aspartate Amino Transferase 23 U/L (5-37); Bilirubin Total 0.9 mg/dL (0.0-1.0); Blood Urea Nitrogen 14 mg/dL (9-16); Calcium 9.1 mg/dL (8.4-10.2); Carbon Dioxide 26 mmol/L (22-29); Chloride 108 mmol/L (96-108); Cholesterol 232 mg/dL (<200); Estimated Glomerular Filt Rate > 60; Glucose Fasting 132 mg/dL (60-99); HDL Cholesterol 46 mg/dL (>40); LDL Cholesterol Calculated 172 mg/dL (<100); Potassium 4.3 mmol/L (3.3-5.1); Sodium 140 mmol/L (135-145); TSH reflex Free T4 1.03 uIU/mL (0.32-4.0); Total Protein 7.2 g/dL (6.5-8.0); Triglycerides 72 mg/dL (<150); Vitamin D 25-OH Total 15.3 ng/mL (>30)
== END 2024-08-25 08:36 | disposition home or self-care (01) ==
LOC: HO.LAB 08:35
DX: I48.0 Paroxysmal atrial fibrillation (principal); E78.5 Hyperlipidemia, unspecified; E66.9 Obesity, unspecified; Z68.39 Body mass index [BMI] 39.0-39.9, adult; M25.512 Pain in left shoulder; G89.29 Other chronic pain; J45.22 Mild intermittent asthma with status asthmaticus; M25.561 Pain in right knee; M25.562 Pain in left knee; Z00.00 Encounter for general adult medical examination without abnormal findings
CPT/HCPCS: 36415; 73030; 80053; 80061; 81003; 82306; 84443; 85025; 93005; 96127; 99212

== ENCOUNTER → 2024-08-25 09:53 | Outpatient (BNV) | payer OTHER, SELFPAY | PROVIDERS: Visit Provider Internal Medicine Cardiovascular Disease | DX: I45.10 Unspecified right bundle-branch block (principal) | CPT/HCPCS: 93010 ==

== ENCOUNTER → 2024-08-25 10:01 | Outpatient (BNV) | payer OTHER, SELFPAY | PROVIDERS: Visit Provider Radiology Diagnostic Radiology | DX: M19.012 Primary osteoarthritis, left shoulder (principal) | CPT/HCPCS: 73030 ==

== ENCOUNTER 2024-10-21 08:40 | Outpatient (AMB) | payer OTHER, SELFPAY ==
--- NOTE | 2024-10-21 08:43 | A.OFFPC_ITS ---
Vital Signs 3 10/21/24 08:44 Height 5 ft 8 in Weight 261 lb 6 oz BMI 39.7 BP 120/76 Blood Pressure Location Lt brachial Position Sitting Pulse 65 Pulse Source Pulse Oximeter Temp 97.1 F Temp Source Temporal Artery Scan Pulse Oximetry (%) 96 Oxygen Delivery Method Room Air Intake Visit Reasons: LEFT SHOULDER PAIN Intake Note: Patient is here to follow up on Left shoulder pain. Laser Engineer Required: No Digital Advertising Specialist: Not Required per policy Accompanied by: Self / Same As Patient Allergies animal dander Allergy (Intermediate, Verified 10/21/24 08:53) Itchy Eyes latex (LATEX) Allergy (Intermediate, Verified 10/21/24 08:53) ITCHING/RASH-from powder in latex gloves Medication List - Last Reconciled 10/21/24 by MARCELLE Pressley albuterol sulfate 90 mcg/actuation (Ventolin HFA) 2 puffs inhalation Q4-6H PRN ibuprofen 800 mg PO Q8H Tobacco use date assessed: 10/21/24 Dental Screening Dental Screen Date: 08/25/24 HPI LEFT SHOULDER PAIN 2 HPI0 Details Patient is a 49-year-old male with a presenting for evaluation of left shoulder pain The patient had a recent x-ray of the left shoulder that showed glenohumeral joint narrowing and osteophyte He also reports s/p fall a week ago off a stool that started his discomfort in the left shoulder-no fx or acute injury noted He reports mid back painful lump that his girlfriend tried to squeeze but nothing came out of it. This area as been more bothersome since, affecting his sleeping, when lying on his back Recent labs reviewed with patient; he was found to have elevated fasting glucose 132. A1c done in his office-6.4%, that put the patient in the prediabetic range. Elevated cholesterol with LDL 172, the patient has a strong family history of heart disease. Discussion on the possible treatment plans; he would like to do diatary modifications for now. Vitamin D level was low and he was ordered vitamin D3 50mcg daily. [facility] Medical History (Updated 10/22/24 @ 00:08 by MARCELLE Pressley) Bilateral knee pain PAF (paroxysmal atrial fibrillation) Obesity (BMI 30-39.9) Asthma Surgical History History of lipoma Family History Mother No problems noted. Father No problems noted. Social History Housing: House Patient Tobacco Use Status: Former Tobacco user Tobacco use type: Cigar e-Cigarette/Vaping Use: Never Used Second Hand Smoke Exposure: Yes service: No Current occupational status: unemployed Cognitive needs: No Hearing needs: No Vision needs: No Questionnaire Thrive Questionnaire Date Thrive assessed: 08/25/24 What is your living situation today?: I have a steady place to live Within the past 12 months, did the food you bought not last and you didn't have the money to get more?: I choose not to answer this question Within the past 12 months, did you worry whether your food would run out before you got money to buy more?: I choose not to answer this question Do you have trouble paying for medicines?: I choose not to answer this question Do you have trouble getting transportation to medical appointments?: I choose not to answer this question Do you have trouble paying your heating and electricity bill?: Yes Do you have trouble taking care of your child, family member or friend?: No Do you have trouble with day-to-day activities such as bathing, preparing meals, shopping, managing finances, etc.?: No Are you currently unemployed and looking for a job?: Yes Are you interested in more education?: Yes Please select the resources that you would like help with: Education Currently or been in a relationship where the following occur: I choose not to answer THRIVE Score: 1 AUDIT C Alcohol Use Questionnaire (AUDIT-C) 1. How often do you have a drink containing alcohol?: Never Total Score: 0 DERRELL-7 AMB Questionnaire DERRELL-7 Date DERRELL - 7 assessed: 08/25/24 Feeling nervous, anxious, or on edge: 0 = Not at all Not being able to stop or control worryin = Not at all Worrying too much about different things: 0 = Not at all Trouble relaxin = Not at all Being so restless that it is hard to sit still: 0 = Not at all Becoming easily annoyed or irritable: 0 = Not at all Feeling afraid as if something awful might happen: 0 = Not at all Total DERRELL-7 score (0-4 normal; 5-9 mild; 10-14 moderate; 15-21 severe): 0 Source: Developed by Drs. Raymond Keller, Anny Saleh, Reuben Milton and colleagues, with an educational kedar from [employer]. Review of Systems Const Denies body aches, Denies chills, Denies fever(s), Denies headache(s) and Denies poor appetite Eyes Reports no additional complaints ENT Denies dysphagia, Denies dizziness, Denies headache(s) and Denies odynophagia Card Denies chest pain, Denies syncope, Denies edema, Denies irregular heart rhythm, Denies lightheadedness and Denies dyspnea Resp Denies cough and Denies dyspnea GI Denies abdominal pain, Denies constipation, Denies dysphagia, Denies diarrhea, Denies nausea, Denies odynophagia and Denies vomiting Reports no additional complaints Musc Reports arthralgias (left shoulder) and Reports stiffness (limited ROM-unable to raise his arm above stopped about 120) Skin/Breast Reports lesions (painful lump on upper back) Neuro Denies dizziness, Denies syncope and Denies headache(s) Psych Reports no additional complaints Physical exam (Primary Care) Vital Signs: Last Vital Signs Temp 97.1 F 10/21/24 08:44 Pulse 65 10/21/24 08:44 BP 120/76 10/21/24 08:44 Pulse Ox 96 10/21/24 08:44 Oxygen Delivery Method Room Air 10/21/24 08:44 BMI result Body Mass Index 39.7 Tobacco/Smoking Status: Tobacco use Status Tobacco use date assessed 10/21/24 10/21/24 08:44 Patient Tobacco Use Status Former Tobacco user 10/21/24 08:44 Tobacco use type Cigar 10/21/24 08:44 e-Cigarette/Vaping Use Never Used 10/21/24 08:44 Thrive Assessment: Date of Thrive Assessment Date Thrive assessed 08/25/24 10/21/24 08:44 Currently or been in a relationship where the following occur: I choose not to answer Const General: cooperative, healthy appearing, comfortable and no acute distress Orientation/consciousness: patient oriented x3 HENMT Head: Yes normocephalic Ears: hearing grossly normal bilaterally General nose exam: Normal external nose present Eyes General: appearance normal, both eyes and all related structures Conjunctivae: conjunctivae normal Neck Neck: Yes full ROM and Yes no lymphadenopathy Resp Effort & Inspection: normal respiratory effort Auscultation: clear to auscultation bilaterally, no crackles, no rales, no rhonchi and no wheezes Cardio Rate: regular rate Rhythm: regular rhythm Heart sounds: S1 normal heart sound present and S2 normal heart sound present Back/Spine/Pelvis Back/spine/pelvis image: 2 1. Mid-back left paraspinal 5X4.2 cm sebaceous cyst Skin General skin exam: no rashes or lesions noted Neuro General: patient oriented x3 Gait exam (Neuro): Normal gait present Extrem General: Yes normal to inspection, Yes full ROM and No edema Left upper extremity: shoulder/upper arm Details: tenderness Location: of the A- C joint and abnormal ROM Details: pain with active ROM (unable to extend hand above head fully-stopped at 120 degree) Psych Affect: normal affect Attitude: cooperative Insight: Good insight present (Psych) Judgement: Good judgement present (Psych) Results AMB Hemoglobin A1c 2 AMB Hemoglobin A1c 6.4 % Last Edit by SHIREEN Benton on 10/21/24 08:59 Results Reviewed Results Reviewed: Laboratory Last Values Hgb A1c (Clinic) 6.4 % (4.0-6.0) H 10/21/24 08:52 Laboratory Tests 08/25/24 08/25/24 09:42 09:45 WBC 4.0 L RBC 5.26 Hgb 14.3 Hct 43.5 MCV 82.7 MCH 27.2 MCHC 32.9 RDW 12.2 Plt Count 241 MPV 10.1 Sodium 140 Potassium 4.3 Chloride 108 Carbon Dioxide 26 Anion Gap 10 L BUN 14 Creatinine 0.71 Estimated GFR > 60 Fasting Glucose 132 H Calcium 9.1 Total Bilirubin 0.9 AST 23 ALT 28 Alkaline Phosphatase 82 Total Protein 7.2 Albumin 4.5 Triglycerides 72 Cholesterol 232 H LDL Cholesterol, Calc 172 H HDL Cholesterol 46 25-OH Vitamin D Total 15.3 L TSH 1.03 Urine Color Yellow Urine Appearance Clear Urine pH 7.0 Ur Specific [place] 1.025 Urine Protein Negative Urine Glucose (UA) Negative Urine Ketones Negative Urine Blood Negative Urine Nitrite Negative Ur Leukocyte Esterase Negative Coding Level of Care Code Est Pt Level 3 (12020) Diagnoses Chronic left shoulder pain M25.512; G89.29 Chronicity: chronic Prediabetes R73.03 Obesity (BMI 30-39.9) E66.9 Hyperlipidemia, unspecified hyperlipidemia type E78.5 Hyperlipidemia type: unspecified Sebaceous cyst L72.3 Mild intermittent asthma with status asthmaticus J45.22 Asthma severity: mild Asthma persistence: intermittent Asthma complication type: with status asthmaticus Vitamin D deficiency E55.9 Time Spent (min) 33 Assessment & Plan Assessment & Plan (1) Left shoulder pain: Code(s): M25.512 - Pain in left shoulder Category: Medical Qualifiers: Chronicity: chronic Qualified Code(s): M25.512 - Pain in left shoulder; G89.29 - Other chronic pain Plan: left shoulder xray showed: There are moderate osteoarthritic changes at the glenohumeral joint with significant joint space narrowing and osteophyte formation. Will refer to PT (2) Prediabetes: Code(s): R73.03 - Prediabetes Category: Medical Plan: Fasting glucose 132 on 08/25/24 -A1C 6.4% in office today cautioned the patient that he is prediabetic and is one point away from being diabetic reinforced low sugar/carbohydrate diet. Will repeat fasting glucose and a1c in 3 months (3) Obesity (BMI 30-39.9): Code(s): E66.9 - Obesity, unspecified Category: Medical Plan: Discussed lifestyle modifications including dietary changes and physical activity work on losing weight (4) HLD (hyperlipidemia): Code(s): E78.5 - Hyperlipidemia, unspecified Category: Medical Qualifiers: Hyperlipidemia type: unspecified Qualified Code(s): E78.5 - Hyperlipidemia, unspecified Plan: tri 72/total 232/LDL 172/hdl 46 reinforced low cholesterol diet and activity as tolerated will repeat lipid panel in 3 months (5) Sebaceous cyst: Code(s): L72.3 - Sebaceous cyst Category: Medical Plan: right upper back sebaceous cyst appearing, tender after being squeezed by Mid back left paraspinal 5X4.2 cm sebaceous cyst- will refer him to general surgery (6) Asthma: Code(s): J45.909 - Unspecified asthma, uncomplicated Category: Medical Qualifiers: Asthma severity: mild Asthma persistence: intermittent Asthma complication type: with status asthmaticus Qualified Code(s): J45.22 - Mild intermittent asthma with status asthmaticus Plan: Lifestyle modifications like smoking cessation. Wear a mask when around irritants, fumes, or particulate matter (e.g., painting, lawn mowing). Increase humidification at home, especially in the winter. Annual flu shots and the pneumonia shot can mitigate exacerbation. Increase fluids if not contraindicated because of heart failure. continue rescue inhaler as needed (7) Vitamin D deficiency: Code(s): E55.9 - Vitamin D deficiency, unspecified Category: Medical Plan: vit D 15.3 continue chlecalciferol 50 mcg daily Orders: Orders 2 AMB Hemoglobin A1c 10/21/24 Z13.9 - Encounter for screening, unspecified Complete Blood Count Auto Diff 3 Months E55.9 - Vitamin D deficiency, unspecified, E66.9 - Obesity, unspecified, E78.5 - Hyperlipidemia, unspecified, R73.03 - Prediabetes Comprehensive [place]. Panel Fast 3 Months E55.9 - Vitamin D deficiency, unspecified, E66.9 - Obesity, unspecified, E78.5 - Hyperlipidemia, unspecified, R73.03 - Prediabetes Lipid Panel 3 Months E55.9 - Vitamin D deficiency, unspecified, E66.9 - Obesity, unspecified, E78.5 - Hyperlipidemia, unspecified, R73.03 - Prediabetes UA CC w/rflx Micro + Cult 3 Months E55.9 - Vitamin D deficiency, unspecified, E66.9 - Obesity, unspecified, E78.5 - Hyperlipidemia, unspecified, R73.03 - Prediabetes Vitamin D 25-OH Total 3 Months E55.9 - Vitamin D deficiency, unspecified, E66.9 - Obesity, unspecified, E78.5 - Hyperlipidemia, unspecified, R73.03 - Prediabetes PT Evaluation and Treatment Today G89.29 - Other chronic pain, M25.512 - Pain in left shoulder Hemoglobin A1c 3 Months E55.9 - Vitamin D deficiency, unspecified, E66.9 - Obesity, unspecified, E78.5 - Hyperlipidemia, unspecified, R73.03 - Prediabetes Referrals 2 General Surgery Referral L72.3 - Sebaceous cyst Medications: New 2 cholecalciferol (vitamin D3) 50 mcg PO DAILY 90 caps 3RF
[2024-10-21 08:44] VITALS: BP 120/76; PULSE 65; TEMP 36.2; O2SAT 96; BMI 39.7
--- OUTSIDE RECORDS SUMMARY | 2024-10-21 08:56 | XMS_ITS | Clinical Summary ---
Author Organization [facility] Address [address] [place] [address] Care Team Providers Care Bulk Sealer Operator Name Role Phone Unavailable Primary Care Provider Unavailabl e Social History Tobacco Use Types Packs/Day Years Used Date Smoking Tobacco: Never Assessed Sex and Gender Information Value Date Recorded Sex Assigned at Not on file Legal Sex Male 8:43 PM EST Gender Identity Not on file Sexual Orientation Not on file Plan of Treatment Health Maintenance Due Date Last Done Comments DTaP,Tdap,and Td Vaccines (1 - Tdap) 02/23/1992 Hepatitis B Vaccines (1 of 3 - 19+ 3-dose series) 02/23/1992 Pneumococcal Vaccine: 50+ Ye ars (1 of 1 - PCV) 2023 Zoster Vaccines (1 of 2) 2023 Cholesterol Screening (Lipid Panel) 04/03/2023 Colorectal Cancer Screening: Colonoscopy 04/03/2023 HIV Screening 04/03/2023 Hepatitis C Screening 04/03/2023 Social Influencers of Health Screening 04/03/2023 COVID-19 Vaccine (1 - 2023-2 5 season) 2023 Depression Screening 03/09/2024 Influenza Vaccine (#1) 2024 HIB Vaccines Aged Out No longer eligi [...] on patient's age to complete this topic MMR Vaccines Aged Out No longer eligi ble based on patient's age to complete this topic Meningococcal ACWY Vaccine Aged Out N o longer eligible based on patient's age to complete this topic Meningococcal B Vaccine Aged Out No l onger eligible based on patient's age to complete this topic RSV Immunization Patients Un bob 20 months Aged Out No longer eligible b ased on patient's age to complete this topic Varicella Vaccines Aged Out No longer eligible based on patient's age to complete this topic
--- OUTSIDE RECORDS SUMMARY | 2024-10-21 08:56 | XMS_ITS | Clinical Summary ---
Author Organization [employer] Address [address] [place] [address] [address] [place] [address] Care Team Providers Care Yarn Dyer Name Role Phone Unavailable Primary Care Provider [...] Upcoming Encounters Date Type Department Care Team ([facility] st Contact Info) Description 11/14/2024 8:00 AM EDT Office Visit [facility] [address] [place] [address] Celine Bernard Health Maintenance Due Date Last [...] Vaccine (1 - season) 2023 Influenza Vaccine (#1) 2024 Dental Oral Exam 11/13/2024 05/12/2024, , [...] Most Recently Relevant to Health Maintenance Insurance [facility] MEDICAID STAND ADULT
--- OUTSIDE RECORDS SUMMARY | 2024-10-21 08:56 | XMS_ITS | Patient Health Record ---
Author Organization [facility] Address [address] [place] [address] Care Team Providers Care District Gauger Name Role Phone Ke Denson MD Primary Care Provider Raymond Bal [phone] Allergies No Known Allergies Reason For Referral No Information Medications Medication SIG (Take, Route, Frequency, Duration) Notes Start Date End Date Status Dulcolax (colon prep) 5 MG take at 3:00 p.m and 7:00p.m. Orally two tablets twice a day for one day for 1 day 09/30/2023 Active Dulcolax (colon prep) 5 MG take at 3:00 p.m and 7:00p.m. Orally two tablets twice a day for one day for 1 day 06/11/2023 Active MiraLax (colon prep) 17 GM/SCOOP 1 238Gm bottle mixed with Gatorade or Crystal Light Orally begin at 5:00 p.m. the day before the procedure for 1 day 06/11/2023 Active Ibuprofen 800 MG Oral for 30 A ctive Immunizations Vaccine Route Administration Date Status Comme nts Influenza Unknown 06/10/2023 Refused Social History Tobacco Use: Social History Observation Description Date Details (start date - stop date) Never Smoker NA - NA Tobacco Use/Smoking Question Answer Notes Patient is a nonsmoker Alcohol Screen Question Answer Notes Did you have a drink containing alcohol in the p ast year? No Points 0 Interpretation Negative Section Notes: Nonsmoker; no alcohol, altho ugh heavy in the past Problems Problem Type SNOMED Code ICD Code Onset Dates Problem Status W/U Status Risk Notes Problem Screening for malignant neoplasm of colon (875587205) Encounter for screening for malignant neoplasm of colon (Z12.11) Active confirmed Problem Pre-procedure evaluation check (443899050) Encounter for other preprocedural examination (Z01.818) Active confirmed Problem Diverticulosis o f large intestine without perforation or abscess without bleeding (K57.30) Active confirmed Plan Of Treatment Future Test Test Name Order Date COLONOSCOPY 06/10/2023 Insurance Providers Payer Name Payer Address Payer Phone Subscriber Number Group Number Insured Name Patient Relationship to Insured Coverage Start Date Coverage End Date [facility] [address] [address] [place], [place] [id number] [phone] [id number] XENA CHAUDHRY Self - patient is the insured Medical (General) History Medical History History ICD Code Denies VT,DM,CVA,Lung disease,renal dise ase A.fib 2001--resolved Surgical History Surgery Date(Month/Year) Lipoma Hospitalization History Reason Date(Month/Year)
== END 2024-10-21 09:28 | disposition home or self-care (01) ==
LOC: HO.HMCH 08:41
DX: M25.512 Pain in left shoulder (principal); G89.29 Other chronic pain; E66.9 Obesity, unspecified; Z68.39 Body mass index [BMI] 39.0-39.9, adult; R73.03 Prediabetes; E78.5 Hyperlipidemia, unspecified; L72.3 Sebaceous cyst; J45.22 Mild intermittent asthma with status asthmaticus; E55.9 Vitamin D deficiency, unspecified

== ENCOUNTER → 2024-10-21 08:40 | Outpatient (BNVA) | payer OTHER, SELFPAY | DX: M25.512 Pain in left shoulder (principal); G89.29 Other chronic pain; R73.03 Prediabetes; E66.9 Obesity, unspecified; L72.3 Sebaceous cyst; J45.22 Mild intermittent asthma with status asthmaticus; E55.9 Vitamin D deficiency, unspecified; E78.5 Hyperlipidemia, unspecified; Z68.39 Body mass index [BMI] 39.0-39.9, adult | CPT/HCPCS: 83036; 99212 ==

== ENCOUNTER 2024-11-10 11:02 | Outpatient (AMB) | payer OTHER, SELFPAY ==
--- OUTSIDE RECORDS SUMMARY | 2023-10-02 03:30 | XMS_ITS ---
Author Organization [facility] Address [address] [place] [phone] Care Team Providers Care Mining Captain Name Role Phone Ke Denson MD Primary Care Provider Raymond Bal [phone] REASON FOR VISIT screening Problems Problem Type SNOMED Code ICD Code Onset Dates Problem Status W/U Status Risk Notes Problem Diverticular disease of colon (853725971) Diverticulosis of large intestine without perforation or abscess without bleeding (K57.30) Active confirmed Encounters Encounter Location Date Provider Diagnosis [facility] [place] Out[place] [address], [place] [phone] 10/02/2023 Raymond Miranda Colon cancer scree kamron [...] * RICHA MARYISDOB:1975 ([age] yo M)Acc No.[id number]:10/02/2023 COLON WITH MAC Patient: XENA MARTINEZ Provider: Rad Miranda MD :1975 A ge:48 Y S ex:Male Date:10/02/2023 Address:[address] [place] [address] , [address] [id number] Pcp:Ke Denson MD Subjective: * Chief Complaints: [...] 10/02/2023 Generated for Conor santana/Nicole/Jamaicaitting on: 0 11/10/2024 12:40 PM EDT
[2024-11-10 11:12] VITALS: BP 110/60; PULSE 80; BMI 39.6
--- NOTE | 2024-11-10 11:12 | A.OFFVIS_ITS ---
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 He states he had atrial fibrillation in his 20s and he was hospitalized at that time. Over time, he has been changing his lifestyle including eliminating junk foods and alcohol and he is in fact had no recurrence of atrial fibrillation for more than 2 decades. He has no known coronary disease or in fact any other cardiac symptoms. He is extremely active with absolutely no limitations. His weight is still on the higher side but he states he is working on it. [facility] Medical History (Updated 11/10/24 @ 11:42 by Margarito Maldonado MD) Bilateral knee pain PAF (paroxysmal atrial fibrillation) Obesity (BMI 30-39.9) Asthma Surgical History History of lipoma Family History Mother No problems noted. Father No problems noted. Social History (Updated 11/10/24 @ 11:18 by Jacki Flynn) Housing: House Alcohol intake: never Patient Tobacco Use Status: Former Tobacco user Tobacco use type: Cigar e-Cigarette/Vaping Use: Never Used Second Hand Smoke Exposure: Yes service: No Current occupational status: unemployed Cognitive needs: No Hearing needs: No Vision needs: No Review of Systems Const Denies weakness ENT Reports dizziness Card Denies chest pain, Denies chest pain with activity, Denies syncope, Denies rapid heart rate, Denies pedal edema, Denies edema, Denies leg edema, Denies lightheadedness, Denies palpitations, Denies dyspnea, Denies dyspnea on exertion and Denies orthopnea Resp Denies cough, Denies dyspnea and Denies dyspnea on exertion GI Denies hematochezia and Denies change in stool character Musc Denies abnormal gait, Denies muscle cramps, Denies muscle weakness, Denies numbness, Denies radiating pain into limb and Denies tingling Neuro Denies abnormal gait, Reports dizziness, Denies syncope, Denies numbness, Denies tingling and Denies weakness Endo Denies palpitations Physical Exam Vital Signs: Last Vital Signs Pulse 80 11/10/24 11:12 BP 110/60 11/10/24 11:12 BMI result Body Mass Index 39.6 Const General: comfortable and no acute distress Orientation/consciousness: patient oriented x3 HEENT Other: Unremarkable Head: Yes normal to inspection Neck Neck: Yes normal visual inspection Chest Chest palpation & inspection: normal inspection of the chest Resp Auscultation: clear to auscultation bilaterally Cardio Palpation: normal PMI Heart sounds: S1 normal heart sound present, S2 normal heart sound present, no gallops, no murmurs and no rubs GI Palpation (GI): Soft to palpation Back/Spine/Pelvis Other: unremarkable Skin General skin exam: no rashes or lesions noted Neuro General: patient oriented x3 Extrem General: Yes normal to inspection Psych Mental Status: mental status grossly normal Assessment & Plan Assessment & Plan (1) PAF (paroxysmal atrial fibrillation): Code(s): I48.0 - Paroxysmal atrial fibrillation Category: Medical (2) HLD (hyperlipidemia): Code(s): E78.5 - Hyperlipidemia, unspecified Category: Medical Qualifiers: Hyperlipidemia type: unspecified Qualified Code(s): E78.5 - Hyperlipidemia, unspecified Plan In the recent EKG from August, sinus rhythm at 71/Min. No ischemic changes and otherwise no significant findings. There are other EKGs in 2012, 2006 and 2005. They are all fairly unremarkable. A Holter monitor from 2005 shows sinus rhythm, sinus bradycardia/sinus tachycardia. Rare supraventricular ectopy. An echocardiogram from 2000 while indications states atrial fibrillation reports normal biventricular function, slight left atrial enlargement and no structural valvular heart disease. Overall, remote episode of atrial fibrillation with no recurrence and no active cardiac symptoms otherwise. In this instance, no specific recommendations apart from lifestyle measures including weight loss, regular exercise, avoiding cigarettes and alcohol among others. We discussed about these today. If indeed there is any new symptom more concern in this regard, he will contact us. We also briefly discussed about his lipids and he wants to mainly focus on lifestyle and avoid any medications. He will follow that with his own PCP. For future, he will call with any active concerns. Discussion Notes During the consultation, we discussed the patient's history of atrial fibrillation and the importance of lifestyle changes in managing this condition. We also reviewed his elevated cholesterol levels and the potential need for medication if dietary management proves insufficient. The patient was advised to follow up with his primary care provider for ongoing monitoring and management. Patient was informed and verbally consented to the use of an ambient scribe for clinic note documentation during this visit. Medications: Changed From ibuprofen 800 mg PO Q8H 90 tabs 8RF To ibuprofen 800 mg PO Q8H PRN Coding Level of Care Code New Pt Level 3 (38523) Diagnoses PAF (paroxysmal atrial fibrillation) I48.0 Hyperlipidemia, unspecified hyperlipidemia type E78.5 Hyperlipidemia type: unspecified
--- OUTSIDE RECORDS SUMMARY | 2024-11-10 12:40 | XMS_ITS | Clinical Summary ---
Author Organization [employer] Address [address] [place] [address] [address] [place] [address] Care Team Providers Care Carbide Grinder Name Role Phone Unavailable Primary Care Provider [...] Upcoming Encounters Date Type Department Care Team ([facility] st Contact Info) Description 11/18/2024 11:00 AM EDT Office Visit [facility] [address] [place] [address] [address] [facility] Department Due Date Last Done Comments CT Colonography [...] of 2) 2023 COVID-19 Vaccine (1 - 2023- season) 2024 Influenza Vaccine (#1) 2024 Dental Oral Exam [...] Most Recently Relevant to Health Maintenance Insurance DENTAL-[facility] MEDICAID STAND ADULT
--- OUTSIDE RECORDS SUMMARY | 2024-11-10 12:40 | XMS_ITS | Encounter Summary ---
Author Organization [facility] Address [address] [place] [address] 7t [place] [address] Care Team Providers Care Office Systems Technology Instructor Name Role Phone Unavailable Primary Care Provider Unavailabl e Encounter Details Date Type Department Care Team (Late st Contact Info) Description 01/08/2023 Abstract [facility] [address] [place] [address] Fernando Main Social History Tobacco Use Types Packs/Day Years Used Date Smoking Tobacco: Never Passive Smoke Exposure: Never Smokeless Tobacco: Never Alcohol Use Standard Drinks/Week Comments Defer 0 (1 standard drink = 0.6 oz pur e alcohol) Comments Unknown Sex and Gender Information Value Date Recorded Sex Assigned at Male 01/06/2022 10:16 AM EDT Legal Sex Male 10:16 AM EDT Gender Identity Male 01/06/2022 10:16 AM EDT Sexual Orientation Straight 01/06/2022 10 :16 AM EDT documented as of this encounter Plan of Treatment Upcoming Encounters Date Type Department Care Team (Late st Contact Info) Description 11/18/2024 11:00 AM EDT Office Visit [facility] [address] [place] [address] Fernando Main documented as of this encounter Visit Diagnoses Not on filedocumented in this encounter
--- OUTSIDE RECORDS SUMMARY | 2024-11-10 12:40 | XMS_ITS | Encounter Summary ---
Author Organization [facility] Address [address] 7t [place] [address] Care Team Providers Care Manufacturing Weaver Name Role Phone Unavailable Primary Care Provider Unavailabl e Encounter Details Date Type Department Care Team (Latest Contact Info) Description 01/10/2021 Abstract [facility] Dental, Provider, DDS Social History Tobacco Use Types Packs/Day Years Used Date Smoking Tobacco: Never Assessed Comments Unknown Sex and Gender Information Value [...] Description 11/18/2024 11:00 AM EDT Office Visit [facility] ADULT [facility] [address] [place] [address] Fernando Main documented as of this encounter Visit Diagnoses Not on filedocumented in this encounter
--- OUTSIDE RECORDS SUMMARY | 2024-11-10 12:40 | XMS_ITS | Clinical Summary ---
Author Organization [facility] Address [address] [place] [address] Care Team Providers Care Meat Grinder Name Role Phone Unavailable Primary Care [...] 04/03/2023 Social Influencers of Health Screening 04/03/2023 Depression Screening 03/09/2024 COVID-19 Vaccine ( - 2023-2 5 season) 2024 Influenza Vaccine (#1) 2024 HIB Vaccines Aged [...]
--- OUTSIDE RECORDS SUMMARY | 2024-11-10 12:40 | XMS_ITS | Patient Health Record ---
Author Organization [facility] Address [address] [place] [address] Care Team Providers Care Granite Block Paver Name Role Phone Ke Denson MD Primary Care Provider Raymond Bal [phone] Allergies No Known Allergies Reason For Referral [...] Problem Screening for malignant neoplasm of colon (426102851) Encounter for screening for malignant neoplasm of colon (Z12.11) Active confirmed Problem Pre-procedure evaluation check (785615940) Encounter for other preprocedural examination (Z01.818) Active confirmed Problem Diverticular disease of colon (681165282) Diverticulosis of large intestine without perforation or abscess without bleeding (K57.30) Active confirmed Plan Of Treatment Future Test Test Name Order Date COLONOSCOPY 06/10/2023 Insurance Providers Payer Name Payer Address Payer Phone Subscriber Number Group Number Insured Name Patient Relationship to Insured Coverage Start Date Coverage End Date [facility] [address] [address] [place], [place] [id number] [phone] [id number] XENA CHAUDHRY Self - patient is the insured Medical (General) History Medical History History ICD Code Denies [place],DM,CVA,Lung disease,renal dise ase Andre 2001--resolved Surgical History Surgery Date(Month/Year) Lipoma Hospitalization History Reason Date(Month/Year)
== END 2024-11-10 11:32 | disposition home or self-care (01) ==
LOC: HO.HCS 11:03
PROVIDERS: Visit Provider Internal Medicine
DX: I48.0 Paroxysmal atrial fibrillation (principal); E78.5 Hyperlipidemia, unspecified
CPT/HCPCS: 99203

== ENCOUNTER → 2024-11-10 11:02 | Outpatient (BNVA) | payer OTHER, SELFPAY | PROVIDERS: Visit Provider Internal Medicine | DX: I48.0 Paroxysmal atrial fibrillation (principal); E78.5 Hyperlipidemia, unspecified | CPT/HCPCS: 99202 ==

== ENCOUNTER 2024-11-15 14:22 | Outpatient (AMB) | payer OTHER, SELFPAY ==
--- OUTSIDE RECORDS SUMMARY | 2023-10-02 03:30 | XMS_ITS ---
Author Organization [facility] Address [address] [place] [phone] Care Team Providers Care Pattern Worker Name Role Phone Ke Denson MD Primary Care Provider Raymond Bal [phone] REASON FOR VISIT screening Problems Problem Type SNOMED Code ICD Code Onset Dates Problem Status W/U Status Risk Notes Problem Diverticular disease of colon (848098807) Diverticulosis of large intestine without perforation or abscess without bleeding (K57.30) Active confirmed Encounters Encounter Location Date Provider Diagnosis [facility] [place] [address], [place] [phone] 10/02/2023 Raymond Miranda Colon cancer scree kamron [...] * RICHA MARYISDOB:1975 ([age] yo M)Acc No.[id number]:10/02/2023 COLON WITH MAC Patient: XENA MARTINEZ Provider: Rad Miranda MD :1975 A ge:48 Y S ex:Male Date:10/02/2023 Address:[address] [place] [address] , [address] [facility] Pcp:Ke Denson MD Subjective: * Chief Complaints: [...] 0 10/02/2023 Generated for Conor santana/Nicole/Jamaicaitting on: 0 11/15/2024 04:56 PM EDT
--- NOTE | 2024-11-15 14:26 | MHC.OFFVIS ---
Intake Visit Reasons: sebaceaous cyst on back Intake Note: Patient is seen in office for evaluation of a cyst of the right upper back. Pt c/o: lump for yrs, was drain in the past by family member and the next day was irritated, increase and decrease in size, denies any infection Onion Topper Required: No Accompanied by: Self / Same As Patient Allergies animal dander Allergy (Intermediate, Verified 11/15/24 14:34) Itchy Eyes latex (LATEX) Allergy (Intermediate, Verified 11/15/24 14:34) ITCHING/RASH-from powder in latex gloves HPI Comments Details: 49-year-old male patient presenting for evaluation of a enlarging sebaceous cyst of the right upper back. This has been present for 10-15 years and was previously drained by family members but subsequently became more irritated. The latest time but it was squeezed but his approximately one-month ago at became very large and swollen. 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 This was measured at 5 x 4.2 cm by his primary care. He feels that since then the lesion has decreased in size. He has been applying medicated chapstick which seemed to help. He denies any current discharge from the lesion. He denies any fever or chills. He is requesting excision of this lesion before it increases in size again. [facility] Medical History Bilateral knee pain PAF (paroxysmal atrial fibrillation) Obesity (BMI 30-39.9) Asthma Surgical History History of lipoma Family History Mother No problems noted. Father No problems noted. Social History Housing: House Alcohol intake: never Patient Tobacco Use Status: Former Tobacco user Tobacco use type: Cigar e-Cigarette/Vaping Use: Never Used Second Hand Smoke Exposure: Yes service: No Current occupational status: unemployed Cognitive needs: No Hearing needs: No Vision needs: No Review of Systems Const All systems reviewed & are unremarkable except as noted in HPI and below Denies chills, Denies fever(s), Denies headache(s), Denies poor appetite and Denies weakness ENT Denies headache(s) Card Denies chest pain, Denies irregular heart rhythm, Denies palpitations and Denies dyspnea Resp Denies cough, Denies excessive phlegm production and Denies dyspnea GI Denies abdominal pain, Denies bloating, Denies change in bowel habits, Denies constipation, Denies heartburn, Denies diarrhea, Denies nausea and Denies vomiting Denies difficulty urinating and Denies urinary frequency Musc Denies back pain, Denies muscle weakness and Denies numbness Skin/Breast Denies changing lesions and Denies unusual bruising Neuro Denies headache(s), Denies numbness, Denies paresthesias and Denies weakness Psych Denies anxiety and Denies depression Endo Denies palpitations Emmanuel/Lymph Denies lymphadenopathy Physical Exam Const General: cooperative and no acute distress Nutritional Appearance: well nourished Orientation/consciousness: patient oriented x3 Limitations: no limitations HEENT Head: Yes normocephalic and Yes atraumatic Ears: hearing grossly normal bilaterally Resp Effort & Inspection: normal respiratory effort, no audible wheezes, no cough and no respiratory distress Cardio Jugular venous distension: no JVD GI Inspection: Yes normal to inspection Back/Spine/Pelvis Back/spine/pelvis image:  1. 2 cm diameter epidermal inclusion cyst in the right mid back, non fluctuant, nontender, with no surrounding redness. Skin Other: Warm, dry, no rash Neuro General: patient oriented x3 Extrem General: Yes no clubbing, cyanosis or edema Assessment & Plan Assessment & Plan (1) Sebaceous cyst: Code(s): L72.3 - Sebaceous cyst Category: Medical Plan 49-year-old male patient presenting with long history of a sebaceous cyst of the back which recently became infected. The lesion has now decreased in size significantly and he is requesting excision. On examination there is a 2 cm epidermal inclusion cyst/sebaceous cyst in the mid right back. There was no evidence of infection at this time. I recommended an excision under local anesthesia as an office based procedure. After discussion of the procedure, risks and alternatives, he consents to the surgery. Coding Level of Care Code New Pt Level 4 (04621) Diagnoses Sebaceous cyst L72.3
--- OUTSIDE RECORDS SUMMARY | 2024-11-15 16:56 | XMS_ITS | Clinical Summary ---
Author Organization [facility] Address [address] [place] [address] Care Team Providers Care Third Officer Name Role Phone Unavailable Primary Care Provider [...]
--- OUTSIDE RECORDS SUMMARY | 2024-11-15 16:56 | XMS_ITS | Patient Health Record ---
Author Organization [facility] Address [address] [place] [address] Care Team Providers Care Head Chef Name Role Phone Ke Denson MD Primary Care Provider Raymond Bal [phone] Allergies No Known Allergies Reason For Referral [...] Problem Screening for malignant neoplasm of colon (417785887) Encounter for screening for malignant neoplasm of colon (Z12.11) Active confirmed Problem Pre-procedure evaluation check (384609569) Encounter for other preprocedural examination (Z01.818) Active confirmed Problem Diverticular disease of colon (181566375) Diverticulosis of large intestine without perforation or abscess without bleeding (K57.30) Active confirmed Plan Of Treatment Future Test Test Name Order Date COLONOSCOPY 06/10/2023 Insurance Providers Payer Name Payer Address Payer Phone Subscriber Number Group Number Insured Name Patient Relationship to Insured Coverage Start Date Coverage End Date [facility] [address] [address] [place], [place] [id number] [phone] [id number] XENA CHAUDHRY Self - patient is the insured Medical (General) History Medical History History ICD Code Denies [place],DM,CVA,Lung disease,renal dise ase Andre 2001--resolved Surgical History Surgery Date(Month/Year) Lipoma Hospitalization History Reason Date(Month/Year)
--- OUTSIDE RECORDS SUMMARY | 2024-11-15 16:56 | XMS_ITS | Encounter Summary ---
Author Organization [facility] Address [address] [place] [address] [address] [place] [address] Care Team Providers Care Construction Rigger Name Role Phone Unavailable Primary Care Provider Unavailabl e Encounter Details Date Type Department Care Team (Late st Contact Info) Description 01/08/2023 Abstract [facility] ADULT DENTAL [address] [place] [address] Fernando Main Social History Tobacco Use Types [...] Description 11/18/2024 11:00 AM EDT Office Visit [facility] ADULT [facility] [address] [place] [address] Fernando Main documented as of this encounter Visit Diagnoses Not on filedocumented in this encounter
--- OUTSIDE RECORDS SUMMARY | 2024-11-15 16:56 | XMS_ITS | Encounter Summary ---
Author Organization [facility] Address [address] [place] [address] Care Team Providers Care Information Security Consultant Name Role Phone Unavailable Primary Care Provider Unavailabl e Encounter Details Date Type Department Care Team (Latest Contact Info) Description 01/10/2021 Abstract [facility] Dental, Provider, DDS Social History Tobacco [...] Description 11/18/2024 11:00 AM EDT Office Visit [facility] ADULT DENT[facility] [address] [place] [address] Fernando Main documented as of this encounter Visit Diagnoses Not on filedocumented in this encounter
--- OUTSIDE RECORDS SUMMARY | 2024-11-15 16:56 | XMS_ITS | Clinical Summary ---
Author Organization [employer] Address [address] [place] [address] [address]t [place] [address] Care Team Providers Care Weight And Test Bar Clerk Name Role Phone Unavailable Primary Care Provider [...] Description 11/18/2024 11:00 AM EDT Office Visit [facility] ADULT D[facility] [address] [place] [address] Fernando Main [facility] Due Date Last Done Comments CT Colonography [...] Most Recently Relevant to Health Maintenance Insurance [facility] MEDICAID STAND ADULT
== END 2024-11-15 15:23 | disposition home or self-care (01) ==
LOC: HO.HGS 14:22
PROVIDERS: Visit Provider Surgery
DX: L72.3 Sebaceous cyst (principal)
CPT/HCPCS: 99204

== ENCOUNTER → 2024-11-15 14:22 | Outpatient (BNVA) | payer OTHER, SELFPAY | PROVIDERS: Visit Provider Surgery | DX: L72.3 Sebaceous cyst (principal) | CPT/HCPCS: 99202 ==

== ENCOUNTER 2025-01-17 11:26 | Outpatient (AMB) | payer OTHER, SELFPAY ==
--- OUTSIDE RECORDS SUMMARY | 2023-10-02 02:30 | XMS_ITS ---
Author Organization [facility] Address [address] [place] [id number] Care Team Providers Care Office Nurse Practitioner Name Role Phone Ke Denson MD Primary Care Provider Raymond Bal [phone] REASON FOR VISIT screening Problems Problem Type SNOMED Code ICD Code Onset Dates Problem Status W/U Status Risk Notes Problem Diverticular disease of colon (306215803) Diverticulosis of large intestine without perforation or abscess without bleeding (K57.30) Active confirmed Encounters Encounter Location Date Provider Diagnosis [facility] [place] Outpatient [address], [place] [phone] 10/02/2023 Raymond Miranda Colon cancer scree kamron Z12.11 ; Diverticulosis of large intestine without perforation or abscess without bleeding K57.30 and Other hemorrhoids K64.8 Assessments Encounter Date Diagnosis (ICD Code) Assessment Notes Treatment Notes Treatment Clinical Notes Section Notes 10/02/2023 Colon cancer screening (ICD-10 - Z12.11) 10/02/2023 Diverticulosis of large intestine without perforation or abscess without bleeding (ICD-10 - K57.30) 10/02/2023 Other hemorrhoids (ICD-10 - K64.8) Plan Of Treatment No Information Progress Notes * RICHA MARYISDOB:1975 ([age] yo M)Acc No.[id number]:10/02/2023 COLON WITH MAC Patient: XENA MARTINEZ Provider: Rad Miranda MD :1975 A ge:48 Y S ex:Male Date:10/02/2023 Address:[address] [place] [address] , [address] [facility] Pcp:Ke Denson MD Subjective: * Chief Complaints: * 1 . Screening. * Medical History: Objective: * Vitals: Assessment: * Assessment: 1. C olon cancer screening - Z12.11 (Primary) 2 . D iverticulosis of large intestine without perforation or abscess without bleeding - K57.30 3 . O ther hemorrhoids - K64.8 Plan: * Treatment: * Procedure Codes: 4 5378 DIAGNOSTIC COLONOSCOPY * * The named appointment provid er may or may not be the originator of this progress note, and it is not deemed complete until electronically signed by the appointment provider. Sign off status: Pending * Provider: Rad Miranda MD Date: 0 10/02/2023 Generated for Conor santana/Nicole/Jamaicaitting on: 03/19/2024 01:34 PM EST
--- NOTE | 2025-01-17 11:34 | A.OFFVIS_ITS ---
Vital Signs 3 01/17/25 12:10 Height 5 ft 8 in Weight 260 lb 2.327 oz BMI 39.6 BP 112/72 Blood Pressure Location Lt brachial Position Sitting Intake Visit Reasons: Sebaceous cyst Intake Note: Patient is seen for office procedure: Excision of cyst of the mid right back. Pt c/o: Felt Washing Machine Tender Required: No Allergies animal dander Allergy (Intermediate, Verified 01/17/25 12:09) Itchy Eyes latex (LATEX) Allergy (Intermediate, Verified 01/17/25 12:09) ITCHING/RASH-from powder in latex gloves Medication List - Last Reconciled 01/17/25 by Floyd Cornejo MD albuterol sulfate 90 mcg/actuation (Ventolin HFA) 2 puffs inhalation Q4-6H PRN 30 days cholecalciferol (vitamin D3) 50 mcg PO DAILY ibuprofen 800 mg PO Q8H PRN HPI Comments Details: Patient returns today for excision of sebaceous cyst of the midback. He feels the lesion has decreased in size since his last visit he denies any pain or discharge at this time. [facility] Medical History Bilateral knee pain PAF (paroxysmal atrial fibrillation) Obesity (BMI 30-39.9) Asthma Surgical History History of lipoma Family History Mother No problems noted. Father No problems noted. Social History Housing: House Alcohol intake: never Patient Tobacco Use Status: Former Tobacco user Tobacco use type: Cigar e-Cigarette/Vaping Use: Never Used Second Hand Smoke Exposure: Yes service: No Current occupational status: unemployed Cognitive needs: No Hearing needs: No Vision needs: No Physical Exam Vital Signs: Last Vital Signs BP 112/72 01/17/25 12:10 BMI result Body Mass Index 39.6 Back/Spine/Pelvis Back/spine/pelvis image: 2 1. 1.5 cm sebaceous cyst midback Office Procedures Excision Details: Preoperative diagnosis: Sebaceous cyst midback Postoperative diagnosis: Sebaceous cyst midback Procedure: Excision sebaceous cyst midback Surgeon: Floyd Cornejo MD Student Ministries Director: None Anesthesia: Lidocaine 1% with epinephrine Indications for procedure: Recently infected sebaceous cyst mid back Operative findings: Noninfected sebaceous cyst midback Specimen: Sebaceous cyst midback Estimated blood loss: Less than 2 mL Complications: None Procedure details: The patient was brought to the procedure room and placed in a prone position. The site of surgery was confirmed by the patient in the midback. After assuring informed consent the skin was prepped with Betadine and draped in a sterile fashion. Local anesthesia was then infiltrated circumferentially around the lesion. An elliptical incision oriented longitudinally was then created with a scalpel and carried out through subcutaneous tissue. The incision was carried out through subcutaneous tissue and around the cyst wall. Lesion was passed off the table and sent to pathology for further examination. Light pressure was held to maintain hemostasis. Dermis was reapproximated using interrupted 3-0 Polysorb sutures. Skin was then closed using interrupted 3-0 nylon sutures. Sterile dressings consisting of 2 x 2 gauze and Tegaderm were then applied. The patient tolerated the procedure well. He was discharged in stable condition. 84335-tpxvg/arms/legs 1.1-2cm Procedure code (CPT) selection complete Assessment & Plan Assessment & Plan (1) Sebaceous cyst: Code(s): L72.3 - Sebaceous cyst Category: Medical Plan 49-year-old male presenting with a recently infected sebaceous cyst of the midback presenting today for excision. He tolerated the procedure well and will return in 1 week for suture removal. Orders: Orders 2 Surgical Today L72.3 - Sebaceous cyst Coding Level of Care Code Procedure Only Diagnoses Sebaceous cyst L72.3 CPT Codes Trunk/Arms/Legs - CPT: 64669-ryzzq/arms/legs 1.1-2cm ([id number])
[2025-01-17 12:10] VITALS: BP 112/72; BMI 39.6
--- OUTSIDE RECORDS SUMMARY | 2025-01-17 13:35 | XMS_ITS | Encounter Summary ---
Author Organization [facility] Address [address] [place] [address] 7t [place] [address] Care Team Providers Care Director Of Individual Giving Name Role Phone Unavailable Primary Care Provider Unavailabl e Encounter Details Date Type Department Care Team (Late st Contact Info) Description 01/08/2023 Abstract [facility] ADULT DENTAL [address] [place] [address] Fernando Main Social History Tobacco Use Types [...] Care Team (Late st Contact Info) Description 05/19/2025 8:00 AM EDT Office Visit [facility] ADULT DENTAL [address] [place] [address] Fernando Main documented as of this encounter Visit Diagnoses Not on filedocumented in this encounter
--- OUTSIDE RECORDS SUMMARY | 2025-01-17 13:35 | XMS_ITS | Patient Health Record ---
Author Organization [facility] Address [address] [place] [address] Care Team Providers Care Manufacturing Executive Name Role Phone Ke Denson MD Primary Care Provider Raymond Bal [phone] Allergies No Known Allergies Reason For Referral No Information Medications Medication SIG (Take, Route, Frequency, Duration) Notes Start Date End Date Status Dulcolax (colon prep) 5 MG take at 3:00 p.m and 7:00p.m. Orally two tablets twice a day for one day; Duration: 1 day 09/30/2023 Active Dulcolax (colon prep) 5 MG take at 3:00 p.m and 7:00p.m. Orally two tablets twice a day for one day; Duration: 1 day 06/11/2023 Active MiraLax (colon prep) 17 GM/SCOOP 1 238Gm bottle mixed with Gatorade or Crystal Light Orally begin at 5:00 p.m. the day before the procedure; Duration: 1 day 06/11/2023 Activ e Ibuprofen 800 MG Oral; Duration: 30 Active Immunizations Vaccine Route Administration Date Status Comme [...] Problem Screening for malignant neoplasm of colon (291345643) Encounter for screening for malignant neoplasm of colon (Z12.11) Active confirmed Problem Pre-procedure evaluation check (375907279) Encounter for other preprocedural examination (Z01.818) Active confirmed Problem Diverticular disease of colon (217804612) Diverticulosis of large intestine without perforation or abscess without bleeding (K57.30) Active confirmed Plan Of Treatment Future Test Test Name Order Date COLONOSCOPY 06/10/2023 Insurance Providers Payer Name Payer Address Payer Phone Subscriber Number Group Number Insured Name Patient Relationship to Insured Coverage Start Date Coverage End Date [facility] [address] [address] [place], [place] [id number] XENA CHAUDHRY Self - patient is the insured Medical (General) History Medical History History ICD Code Denies [place],DM,CVA,Lung disease,renal dise ase Agilda 2001--resolved Surgical History Surgery Date(Month/Year) Lipoma Hospitalization History Reason Date(Month/Year)
--- OUTSIDE RECORDS SUMMARY | 2025-01-17 13:35 | XMS_ITS | Clinical Summary ---
Author Organization [facility] ity Address [address] [place] [address] Care Team Providers Care Sample Finisher Name Role Phone Unavailable Primary Care Provider Unavailabl e Social History Tobacco Use Types Packs/Day Years Used Date Smoking Tobacco: Never Assessed Sex and Gender Information Value Date Recorded Sex Assigned at Not on file Legal Sex Male 8:43 PM EST Gender Identity Not on file Sexual Orientation Not on file Plan of Treatment Health Maintenance Due Date Last Done Comments Colorectal Cancer Screening: Colonoscopy 1973 DTaP,Tdap,and Td Vaccines (1 - Tdap) 02/23/1992 Hepatitis B Vaccines (1 of 3 - 19+ 3-dose series) 02/23/1992 Pneumococcal Vaccine: 50+ Ye ars (1 of 1 - PCV) 2023 Zoster Vaccines (1 of 2) 2023 Cholesterol Screening (Lipid Panel) 04/03/2023 HIV Screening 04/03/2023 Hepatitis C Screening 04/03/2023 Social Influencers of Health Screening 04/03/2023 Depression Screening 03/09/2024 COVID-19 Vaccine ( - 2023-2 5 season) 2024 Influenza Vaccine (#1) 2024 RSV Immunization Adult Patie nts (1 - 1-dose 75+ series) 02/23/2048 HIB [...]
--- OUTSIDE RECORDS SUMMARY | 2025-01-17 13:35 | XMS_ITS | Encounter Summary ---
Author Organization [facility] Address [address] [place] [address] Care Team Providers Care Pharmacy Analyst Name Role Phone Unavailable Primary Care Provider Unavailabl e Encounter Details Date Type Department Care Team (Latest Contact Info) Description 01/10/2021 Abstract [facility] CONVERSION[facility] Dental, Provider, DDS Social History Tobacco [...] Description 05/19/2025 8:00 AM EDT Office Visit [facility] ADULT DENTAL [address] [place] [address] Fernando Main documented as of this encounter Visit Diagnoses Not on filedocumented in this encounter
--- OUTSIDE RECORDS SUMMARY | 2025-01-17 13:35 | XMS_ITS | Clinical Summary ---
Author Organization [employer] Address [address] [place] [address] [address] [place] [address] Care Team Providers Care Leather Coater Name Role Phone Unavailable Primary Care Provider [...] Active Active Problems No known active problems Encounters Date Type Department Care Team Description 11/18/2024 11:00 AM EDT Office Visit [facility] ADULT DENTAL [address] [place] [address] Fernando Main Dental calculus (Primary Dx) from Last 3 Months Social History Tobacco Use Types Packs/Day Years [...] Sign Reading Time Taken Comments Blood Pressure 134/76 11/18/2024 10:54 AM EDT Pulse 78 11/18/2024 10:54 AM EDT Temperature - - Respiratory Rate - - Oxygen Saturation - - Inhaled Oxygen Concentration - - Weight - - Height - - Body Mass Index - - Plan of Treatment Upcoming Encounters Date Type Department Care Team (Late st Contact Info) Description 05/19/2025 8:00 AM EDT Office Visit [facility] ADULT DENTAL [address] [place] [address] Fernando Main Health Maintenance Due Date Last Done Comments CT Colonography 1973 Depression Screening 1973 FIT DNA/Cologuard 1973 [...] 05/12/2024, , 12/22/2022, Additional history exists Dental X-Ray: Bitewings 05/13/2025 05/13/19 25, 07/29/2023, 12/22/2022, Additional history exists Dental Prophylaxis 05/19/2025 11/18/2024, 0 05/12/2024, 07/29/2023, Additional history exists Tobacco Screening 11/18/2025 11/18/2024 Dental X-Ray: Full Mouth 09/22/2026 09/22/2023, 11/0 06/2020 Colonoscopy 10/01/2033 10/02/2023 Colorectal Cancer Screening 10/01/2033 RSV Patients and Patients Aged 60 years [...] Procedure Name Priority Date/Time Associated Diagnosis Comments CASE PRESENTATION, DETAILED AND EXTENSIVE TREATMENT PLANNING Routine 11/18/2024 11:00 AM EDT ORAL HYGIENE INSTRUCTIONS Routine 2024 11:00 AM EDT PROPHYLAXIS - ADULT Routine 11/18/2024 1 1:00 AM EDT BITEWINGS - 4 RADIOGRAPHIC IMAGES Routine 05/12/2024 8:00 AM EST PERIODIC ORAL EVALUATION - ESTABLISHED PATIENT Routine 05/12/2024 8:00 AM EST PANORAMIC RADIOGRAPHIC IMAGE Routine 09/22/2023 10:00 AM EDT from Last 3 Months or Most Recently Relevant to Health Maintenance Insurance [facility] STAND ADULT
== END 2025-01-17 12:01 | disposition home or self-care (01) ==
LOC: HO.HGS 11:27
PROVIDERS: Visit Provider Surgery
DX: L72.3 Sebaceous cyst (principal)
CPT/HCPCS: 11402

== ENCOUNTER 2025-01-17 11:26 | Outpatient (REF) | payer OTHER, SELFPAY | END 2025-01-17 11:27 | disposition home or self-care (01) | LOC: HO.LNP 11:26 | PROVIDERS: Visit Provider Surgery | DX: L72.3 Sebaceous cyst (principal) | CPT/HCPCS: 11402; 88304 ==

== ENCOUNTER 2025-01-25 09:06 | Outpatient (AMB) | payer OTHER, SELFPAY ==
--- OUTSIDE RECORDS SUMMARY | 2023-10-02 02:30 | XMS_ITS ---
Author Organization [facility] Address [address] [place] [id number] Care Team Providers Care Manufacturing Manager Name Role Phone Ke Denson MD Primary Care Provider Raymond Bal [phone] REASON FOR VISIT screening Problems Problem Type SNOMED Code ICD Code Onset Dates Problem Status W/U Status Risk Notes Problem Diverticular disease of colon (845086987) Diverticulosis of large intestine without perforation or abscess without bleeding (K57.30) Active confirmed Encounters Encounter Location Date Provider Diagnosis [facility] [place] Outpatient [address], [place] [phone] 10/02/2023 Raymond Miranda Colon cancer scree kamron [...] * RICHA MARYISDOB:1975 ([age] yo M)Acc No.[id number]:10/02/2023 COLON WITH MAC Patient: XENA MARTINEZ Provider: Rad Miranda MD :1975 A ge:48 Y S ex:Male Date:10/02/2023 Address:[address] [place] [address] , [address] [facility] Pcp:Ke Denson MD Subjective: * Chief Complaints: * S creening Assessment: * Assessment: 1. C olon cancer screening - Z12.11 (Primary) 2 . D iverticulosis of large intestine without perforation or abscess without bleeding - K57.30 3 . O ther hemorrhoids - K64.8 Plan: * Procedure Codes: 4 5378 DIAGNOSTIC COLONOSCOPY Billing Information: * Procedure Codes: 82164 DIAGNOSTIC COLONOSCOPY. * The named appointment provid er may or may not be the originator of this progress note, and it is not deemed complete until electronically signed by the appointment provider. Sign off status: Pending * Provider: Rad Miranda MD Date: 0 10/02/2023 Generated for Conor santana/Nicole/Jamaicaitting on: 03/27/2024 05:02 PM EST
--- NOTE | 2025-01-25 09:08 | A.OFFVIS_ITS ---
Vital Signs 3 01/25/25 09:15 Height 5 ft 8 in Weight 260 lb 2.327 oz BMI 39.6 BP 120/72 Blood Pressure Location Lt brachial Position Sitting Intake Visit Reasons: suture removal Intake Note: Patient is seen in office for follow up visit, post excision of cyst of the mid right back. Pt c/o: per pt area is healing, a bit itchy, sutures removed at visit Embroidery Assistant Required: No Accompanied by: Self / Same As Patient Allergies animal dander Allergy (Intermediate, Verified 01/25/25 09:15) Itchy Eyes latex (LATEX) Allergy (Intermediate, Verified 01/25/25 09:15) ITCHING/RASH-from powder in latex gloves HPI HPI suture removal: Details: Overall doing well, denies pain, initially had some pain in the 1st few days but this has resolved. Now complaining of some itchiness. Denies fevers or chills. Denies drainage or bleeding. [facility] Medical History Bilateral knee pain PAF (paroxysmal atrial fibrillation) Obesity (BMI 30-39.9) Asthma Surgical History History of lipoma Family History Mother No problems noted. Father No problems noted. Social History Housing: House Alcohol intake: never Patient Tobacco Use Status: Former Tobacco user Tobacco use type: Cigar e-Cigarette/Vaping Use: Never Used Second Hand Smoke Exposure: Yes service: No Current occupational status: unemployed Cognitive needs: No Hearing needs: No Vision needs: No Physical Exam Vital Signs: Last Vital Signs BP 120/72 01/25/25 09:15 BMI result Body Mass Index 39.6 Const General: comfortable Orientation/consciousness: patient oriented x3 Back/Spine/Pelvis Back/spine/pelvis image: 2 1. Excision site: Appears to be healing well, no fluctuance or surrounding erythema some mild scabbing. Nontender Neuro General: patient oriented x3 Assessment & Plan Assessment & Plan (1) H/O excision of epidermal inclusion cyst: Code(s): Z98.890 - Other specified postprocedural states; Z87.2 - Personal history of diseases of the skin and subcutaneous tissue Category: Surgical Plan 49-year-old male s/p excision of benign epidermal inclusion cyst on 01/17/[address] Cornejo returning to the office for suture removal. Overall doing well, initially had some pain after the procedure but this has resolved. Only complaint is some itchiness. Sutures were removed in office by MA. On exam site appears to be healing well, some mild scabbing, no other concern for infection. We reviewed pathology results together showing benign epidermal inclusion cyst, ruptured. No longer requiring follow up, can follow up as needed concerns in the future. Coding Level of Care Code Est Pt Level 3 (79634) Diagnoses H/O excision of epidermal inclusion cyst Z98.890; Z87.2
[2025-01-25 09:15] VITALS: BP 120/72; BMI 39.6
--- OUTSIDE RECORDS SUMMARY | 2025-01-25 17:02 | XMS_ITS | Patient Health Record ---
Author Organization [facility] Address [address] [place] [address] Care Team Providers Care Forest Ranger Name Role Phone Ke Denson MD Primary Care Provider Raymond Bal [phone] Allergies No Known Allergies Reason For Referral No Information Medications Medication SIG (Take, Route, Frequency, Duration) Notes Start Date End Date Status Dulcolax (colon prep) 5 MG Tablet Delayed Release take at 3:00 p.m and 7:00p.m. Orally two tablets twice a day for one day; Duration: 1 day 09/30/2023 Active Dulcolax (colon prep) 5 MG Tablet Delayed Release take at 3:00 p.m and 7:00p.m. Orally two tablets twice a day for one day; Duration: 1 day 06/11/2023 Active MiraLax (colon prep) 17 GM/SCOOP Powder 1 238Gm bottle mixed with Gatorade or Crystal Light Orally begin at 5:00 p.m. the day before the procedure; Duration: 1 day 06/11/2023 Activ e Ibuprofen 800 MG Tablet Oral; Duration: 30 Active Immunizations Vaccine Route Administration Date Status Comme nts Influenza Unknown 06/10/2023 Refused Social History Tobacco Use: Social History Observation Description Date Details (start date - stop date) Never Smoker NA - NA Social History Drugs/Alcohol: Social Info Question Answer Notes Alcohol Screen Did you have a drink containing alcohol in the past year? 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 [employer] Section Notes: Nonsmoker; no alcohol, altho ugh heavy in the past Problems Problem Type SNOMED Code ICD Code Onset Dates Problem Status W/U Status Risk Notes Problem Screening for malignant neoplasm of colon (084626747) Encounter for screening for malignant neoplasm of colon (Z12.11) Active confirmed Problem Pre-procedure evaluation check (838785450) Encounter for other preprocedural examination (Z01.818) Active confirmed Problem Diverticular disease of colon (086904937) Diverticulosis of large intestine without perforation or abscess without bleeding (K57.30) Active confirmed Plan Of Treatment Future Test Test Name Order Date COLONOSCOPY 06/10/2023 Insurance Providers Payer Name Payer Address Payer Phone Subscriber Number Group Number Insured Name Patient Relationship to Insured Coverage Start Date Coverage End Date [employer] [facility] [facility] [address] [address] [place], [place] [id number] XENA CHAUDHRY Self - patient is the insured Medical (General) History Medical History History ICD Code Denies VA,DM,CVA,Lung disease,renal dise ase Andre 2001--resolved Surgical History Surgery Date(Month/Year) Lipoma Hospitalization History Reason Date(Month/Year)
--- OUTSIDE RECORDS SUMMARY | 2025-01-25 17:02 | XMS_ITS | Clinical Summary ---
Author Organization [facility] ity Address [address] [place] [address] Care Team Providers Care Trading Manager Name Role Phone Unavailable Primary Care Provider [...] Screening 04/03/2023 Depression Screening 03/09/2024 COVID-19 Vaccine (1 - 2024-2 6 season) 2024 Influenza Vaccine (#1) 2024 RSV [...]
== END 2025-01-25 09:39 | disposition home or self-care (01) ==
LOC: HO.HGS 09:07
DX: Z98.890 Other specified postprocedural states (principal); Z87.2 Personal history of diseases of the skin and subcutaneous tissue
CPT/HCPCS: 99024

== ENCOUNTER → 2025-01-25 09:06 | Outpatient (BNVA) | payer OTHER, SELFPAY | DX: Z48.02 Encounter for removal of sutures (principal); Z98.890 Other specified postprocedural states; Z87.2 Personal history of diseases of the skin and subcutaneous tissue; L29.9 Pruritus, unspecified; M54.6 Pain in thoracic spine | CPT/HCPCS: 99212 ==